=== PATIENT | female | born 1950 | race Caucasian/White ===

== ENCOUNTER 2016-10-06 11:44 | Inpatient (IN) | payer MEDICARE ==
[~2016-10-06] VITALS: Ht 162.6 cm; Wt 86.5 kg
[~2016-10-06 11:44] MED LIST: AMMO1SOL2 MC; ASCO-294 PO; ASPI-973 PO; CALC-762 PO; CHOL200047 PO; HYDR25TA4 PO; LISI-567 PO; METF-496 PO; METO50TA3 PO; NOVO7030I SUBQ; OMEP20CA11 PO
[2016-10-06 12:06] VITALS: BP 177/70; PULSE 63; RESP 18; O2SAT 98
[2016-10-06 12:52] LABS: BASOPHILS % (AUTO) 0.6 % (0-3); MONOCYTES % (AUTO) 8.4 % (4-12); Mean Corpuscular Hemoglobin 30.6 pg (27.0-35.0); Mean Corpuscular Volume 86.4 fL (81-100); NEUTROPHILS % (AUTO) 64.3 % (40-74); Platelet Count 200 bil/L (150-400)
[2016-10-06 13:19] LABS: APPEARANCE,URINE HAZY (CLEAR,HAZY); COLOR,URINE YELLOW (YELLOW); PH,URINE 5.5 (5.0-8.0)
[2016-10-06 13:20] LABS: OCCULT BLOOD,URINE TRACE (NEGATIVE); UROBILINOGEN,URINE NORMAL (NORMAL)
[2016-10-06] MEDS ORDERED: 0.9% Sodium Chloride 1,000 ML IV ONE (13:51)
[2016-10-06] MEDS ORDERED: Ondansetron 2 mg/mL 2 mL Inj IVPUSH ONE (13:55)
--- NOTE | 2016-10-06 13:55 | ED.REPORT ---
HPI-General Illness Date of Service Oct 06, 2016 ED Provider: Rossy Capone MD Patient is a 66-year-old female with a history of DM, high cholesterol, breast cancer, atherosclerotic disease, and HTN who reports to the ED complaining of extreme nausea, onset 6 days ago. She states she has been, "can't seem to feel better," and has been sleeping constantly. Patient has had a cough for a week which has increased in severity and also developed extreme fatigue, nausea, mid- back pain moving to the left flank, head ache, urinary urgency, weight loss and sore throat. She reports she began to feel like she was experiencing a bladder infection. Patient was seen at the Urgent Care 4 days ago where they negated the possibility of strep throat. She is currently on lisinopril. Nursing Notes Stated Complaint: NAUSEA/DIZZINESS/WEAKNESS Chief Complaint: General Complaint Nursing Notes Reviewed: Yes Allergies: Coded Allergies: latex (Verified Allergy, Severe, ITCH/RED WITH GLOVES, 07/10/09) clindamycin (Verified Allergy, Mild, Rash, 07/25/16) nitrofurantoin (Verified Allergy, Mild, Rash, 07/25/16) Scheduled Ammonium Lactate (Ammonium Lactate) 1 Ml Solution 1 ML MC DAILY Ascorbate Calcium (Vitamin C) 500 Mg Tablet 500 MG PO DAILY Aspirin (Aspirin) 81 Mg Tablet 81 MG PO DAILY Calcium Carbonate/Vitamin D3 (Calcium 1,000 + D3 Caplet) 1 Each Tablet 1 EACH PO DAILY Cholecalciferol (Vitamin D3) (Vitamin D3) 2,000 Unit Capsule 2,000 UNIT PO DAILY Hydrochlorothiazide (Hydrochlorothiazide) 25 Mg Tablet 25 MG PO DAILY Insulin Aspart (NovoLOG 70/30 U100 Insulin Vial) 100 Unit/Ml Vial 35 UNIT SUBQ BID Lisinopril (Lisinopril) 20 Mg Tablet 20 MG PO DAILY Metformin ER (Metformin ER) 1,000 Mg Tablet 1,000 MG PO BID HOLD TILL SATURDAY 07/28 Metoprolol Tartrate (Metoprolol Tartrate) 50 Mg Tablet 50 MG PO BID Omeprazole (Omeprazole) 20 Mg Capsule.dr 20 MG PO DAILY General Time Seen by MD: 13:49 Chief Complaint Other (nausea) Hx Obtained From: Patient Arrived By: Walk-in Sudden in Onset?: Yes (d) Onset Occurred: 1 week ago Symptom Duration: Since onset Location: : Back (mid-back pack moving to the left flank) Severity: Current: Mild Recent Healthcare: Recent doctor visit, Recent hospitalization Similar Sx Previous: Yes Past Medical History Past Medical History gastroporesis atherosclerotic disease breast cancer with radiation Reports: Diabetes mellitus, GERD, Hypertension Past Surgical History lumpectomy of left breast Reports: Tonsillectomy Smoking History Never Smoker Social History second hand smoke at the [employer] Alcohol Use: Denies alcohol use Drug Use: Denies drug use Ambulatory Status Independent Review of Systems Full Review of Systems Constitutional: Reports: Fatigue Ears / Nose / Throat: Reports: Sore throat Respiratory: Reports: Non-productive cough GI: Reports: Nausea Female: Reports: Flank pain, Urinary urgency Musculoskeletal: Reports: Back pain (mid-back pain moving to the left flank) Endocrine: Reports: Weight loss Complete sys rev & neg: except as marked. Physical Exam Vital Signs Vital Signs Date Time Temp Pulse Resp B/P Pulse Ox O2 Delivery O2 Flow Rate FiO2 10/06/16 14:16 36.8 78 14 107/50 93 Room Air 10/06/16 12:06 36.2 63 18 177/70 98 Room Air Initial VS: Reviewed General/Constitutional: Awake, Alert, Cooperative Distress / Hydration: Positive: Distress moderate Respiratory / Chest: No wheezing Rales / Rhonchi: Positive: Rhonchi diffuse Interpretation & Diagnostics Lab Results Interpretation Result Diagram: 10/06/16 1245 10/06/16 1245 Test 10/06/16 12:45 10/06/16 12:49 White Blood Count 6.8th/mm3 (3.8-10.1) Red Blood Count 4.28mil/mm3 (3.90-5.20) Hemoglobin 13.1g/dL (12.0-15.6) Hematocrit 37.0% (35.0-46.0) Mean Corpuscular Volume 86.4fL (81-100) Mean Corpuscular Hemoglobin 30.6pg (27.0-35.0) Mean Corpuscular Hemoglobin Concent 35.4% (32.0-37.0) Red Cell Distribution Width 12.2% (12.3-15.4) Platelet Count 200bil/L (150-400) Neutrophils (%) (Auto) 64.3% (40-74) Lymphocytes (%) (Auto) 25.6% (14-46) Monocytes (%) (Auto) 8.4% (4-12) Eosinophils (%) (Auto) 1.0% (0-5) Basophils (%) (Auto) 0.6% (0-3) Sodium Level 122mEq/L (134-144) Potassium Level 4.8mEq/L (3.5-5.2) Chloride Level 84mEq/L (97-108) Carbon Dioxide Level 20mmol/L (18-29) Blood Urea Nitrogen 17mg/dL (8-27) Creatinine 0.81mg/dL (0.57-1.00) Estimat Glomerular Filtration Rate 101mL/min (>59) Glucose Level 213mg/dL (60-99) Calcium Level 8.9mg/dL (8.5-10.1) Total Bilirubin 0.4mg/dL (0.0-1.2) Aspartate Amino Transf (AST/SGOT) 31U/L (0-50) Alanine Aminotransferase (ALT/SGPT) 27U/L (0-32) Alkaline Phosphatase 80U/L (25-165) Total Protein 7.4g/dL (6.4-8.4) Albumin 4.0g/dL (3.4-5.0) Hold Reynolds Top Tube Received (Received) Urine Color Yellow (YELLOW) Urine Appearance Hazy (CLEAR,HAZY) Urine pH 5.5 (5.0-8.0) Urine Specific [place] 1.020 (1.003-1.035) Urine Protein Tracemg/dL (NEG,TRACE) Urine Glucose (UA) Negativemg/dL (NEGATIVE) Urine Ketones Negativemg/dL (NEGATIVE) Urine Occult Blood Trace (NEGATIVE) Urine Nitrite Positive (NEGATIVE) Urine Bilirubin Negative (NEGATIVE) Urine Urobilinogen Normalmg/dL (NORMAL) Urine Leukocyte Esterase Trace (NEGATIVE) Urine RBC 0-2/hpf (0-2) Urine WBC 6-10/hpf (0-5) Urine Epithelial Cells Occasional/hpf (NONE-MOD) Urine Crystals None seen (NONE SEEN) Urine Bacteria Few/hpf (NONE-FEW) Urine Hyaline Casts None/lpf (NONE) Urine Granular Casts None seen (NONE SEEN) Urine Waxy Casts None seen (NONE SEEN) Urine Red Blood Cell Casts None seen (NONE SEEN) Urine White Blood Cell Casts None seen (NONE SEEN) Urine Mucus None seen (None Seen) Urine Trichomonas None seen (NONE SEEN) Urine Yeast None (NONE SEEN) Urinalysis Comment None Urine Culture Reflexed Indicated Lab Results Interpretation: IMPRESSION: 1. Newly apparent 1.5 x 1.4 x 1.4 cm medial left renal exophytic lesion is indeterminate for complex cyst or solid mass, and appears new since 2012 abdominal ultrasound. The level of the lesion is not included on recent chest CT angiogram for further evaluation. As such, consider renal protocol pre-and post contrast abdominal CT or MRI for further characterization. 2. Heterogeneous liver echotexture again noted, probably reflecting fatty infiltration. Dictated by: Rex Gates M.D. on 09/17/2016 at 10:41 Re-Eval/Medical Decision Med Decision/Clinical Course Presents with profound weakness and general malaise with a sodium of 122 124 when glucose is taken into account. Complaining of headaches and recent weight loss. Prior breast cancer. Possibility of metastatic lesions causing SIADH is entertained and CT scan of the brain will be obtained. Recently discovered complex cyst on her left kidney currently being treated for UTI with Cipro. CT scan of the abdomen to further evaluate the kidney lesion was scheduled for last week. She felt too sick to go in for that study and it is rescheduled for tomorrow. We will facilitate ordering that study today Normal saline is given in the emergency department along with Zofran. Admission for hyponatremia and global weakness. Time of Eval: 14:32 Re-Evaluation/Progress Note: Pt rechecked. Informed pt of need for admission. Discussed lab results and plan for imaging. Pt understands and agrees with plan for admission. All questions addressed. Consultation #1: Referral / Consult Name: Agnieszka Olsen MD, PhD Consulted With: Hospitalist Call Returned at: 14:45 Outreach Associate: Agrees with eval, Agrees with plan Note: Dr. Olsen recommended MRI rather then CT scan for brain. Discussed how to order abdominal CT. Consultation #2: Referral / Consult Name: Yessy Ferrari DO Consulted With: Hospitalist Call Returned at: 15:00 Outreach Associate: Agrees with eval, Agrees with plan Note: Case discussed. Counseled Regarding: Diagnosis, Lab results, Need for admission Discharge & Departure Primary Impression: Hyponatremia Additional Impressions: Weakness Renal mass Disposition: ADMITTED TO HOSPITAL Discharge Condition All VS Reviewed: Yes Condition: Stable Referrals: Clive Wang MD (PCP) Anand Attestation Portion of this note were transcribed by Phil Lopez. I, Dr. Capone, personally performed the history, physical exam, and medical decision-making: I reviewed and confirmed the accuracy for the information in the transcribed note. Signed by: anand Vivas, 10/06/16 1500 copies to: Clive Wang MD, Shawna L MD Oct 06, 2016 13:55 PHIL LOPEZ Oct 06, 2016 14:41
[2016-10-06 14:16] VITALS: BP 107/50; PULSE 78; RESP 14; O2SAT 93
[2016-10-06] MEDS ORDERED: Polyethylene Glycol (PEG) 17 Gm Powder PO PRN (15:45)
[2016-10-06] MEDS ORDERED: Ondansetron 2 mg/mL 2 mL Inj IVPUSH PRN (15:45)
[2016-10-06] MEDS ORDERED: Alum-Mag Hydrox-Simeth 30 mL Suspension PO PRN (15:45)
--- NOTE | 2016-10-06 15:48 | DRSVH ---
PROCEDURE: CT ABDOMEN RENAL PROTOCOL INDICATIONS: complex renal mass on Left kidney per u/s TECHNIQUE: Optional 5 mm thick noncontrast images acquired from the diaphragm to the iliac crests. After the ad ministration of intravenous contrast, 5 mm thick images again acquired from the diaphragm to the jimmie c crests in the arterial and urographic phases. 5 mm thick coronal and sagittal reformats were then acquired. For radiation dose reduction, the following was used: automated exposure control, adjustm ent of mA and/or kV according to patient size. COMPARISON: [facility] Ultrasound, US, US ABDOMEN, 09/17/2016, 8:09. FINDINGS: Image quality: Excellent. Lung bases: Lung bases are clear. Heart size is normal. Genitourinary: There is mild symmetrical perinephric fat stranding bilaterally. Kidneys are normal in size. Within the left interpolar kidney anteriorly, corresponding to the other malleus seen by ultra sound, there is a 16mm diameter partially exophytic high density focus which measures 37 Hounsfield u nits prior to intravenous contrast, and 44 Hounsfield units following intravenous contrast, which gr s not meet criteria for an enhancing mass. Immediately adjacent to this lesion, there is a smaller, 8 mm diameter high density focus within the left interpolar kidney medially. No renal enhancement is ot herwise within normal limits. No hydronephrosis. No nephrolithiasis. Proximal ureters are nondistende d. Other solid organs: Liver and spleen are normal in size and enhancement. Gallbladder is within norm al limits. Biliary system is non dilated. Pancreas enhances normally. Mild adrenal thickening is p resent bilaterally. No adrenal nodules. Peritoneum and bowel: Unenhanced bowel loops are normal in wall thickness and caliber. No free flui d or air. Nodes and vessels: No retroperitoneal or mesenteric adenopathy by size criteria. Aorta and inferior vena cava are normal in caliber. Bones: No suspicious bony lesions. No vertebral body compression fractures. Miscellaneous: No ventral hernias. IMPRESSION: 1. Findings which are most consistent with 2 adjacent hemorrhagic or proteinaceous fluid-containing c ysts within the left interpolar kidney. Followup renal protocol CT in 6 months is recommended to exclude the less likely possibility of neopl asm in this location. 2. Mild bilateral adrenal thickening. Dictated by: Keena Spencer M.D. on 10/06/2016 at 15:39 Approved by: Keena Spencer M.D. on 10/06/2016 at 15:46
[2016-10-06 15:53] VITALS: BP 144/63; PULSE 62; RESP 14; O2SAT 98
[2016-10-06] MEDS ORDERED: CIPR-198 PO (17:09)
[2016-10-06] MEDS ORDERED: CREST10T PO (17:09)
[2016-10-06] MEDS ORDERED: UBID300C PO (17:09)
[2016-10-06] MEDS ORDERED: METF500T PO (17:09)
[2016-10-06] MEDS ORDERED: AMMO385C5 TP (17:09)
[2016-10-06] MEDS ORDERED: PHEN-777 PO (17:09)
[2016-10-06] MEDS ORDERED: MULT-666 PO (17:09)
[2016-10-06] MEDS ORDERED: OXYQ113.2 VG (17:09)
[2016-10-06] MEDS ORDERED: INS7030 SUBQ (17:09)
[2016-10-06] MEDS ORDERED: NITR0.4T SL (17:09)
[2016-10-06 18:13] VITALS: BP 153/84; PULSE 67; RESP 20; O2SAT 96
--- NOTE | 2016-10-06 19:09 | NUR ---
Admit note- Received patient from Emergency dept. via stretcher. Alert and oriented and steady on feet. Denies discomfort at this time. Oriented to room, call light, etc.
[2016-10-06] MEDS ORDERED: Phenazopyridine 97.5 mg Tablet PO PRN (19:15)
--- NOTE | 2016-10-06 19:19 | PCM.HPMED ---
Subjective Date of Service Oct 06, 2016 Primary Provider: Admitting Physician: Yessy Ferrari DO Primary Care Physician: Clive Wang MD Attending Physician: Yessy Ferrari DO Chief Complaint: Fatigue and weakness History of Present Illness: 66 yo female presents with the c/o cough, sore throat, DUNLAP, facial edema, pelvic pressure, urinary irritation and fatigure for the last week and a half. Patient went to the urgent care twice and had a negative strep at the first visit and then went to a second urgent care and diagnosed with a UTI and dehydration and started on Cipro 500mg BID 2 days ago. The patient stated that she feels that she has not improved and feels that her symptoms are worsening and decided to come to the ER today. PMHx: DM HTN gastroparesis Breast cancer lumpectomy x2 followed by radiation in 2004 CAD IBS HLD Mass on kidney still being worked up. 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 Allergies Coded Allergies: latex (Verified Allergy, Severe, ITCH/RED WITH GLOVES, 10/06/16) clindamycin (Verified Allergy, Mild, Rash, 10/06/16) nitrofurantoin (Verified Allergy, Mild, Rash, 10/06/16) Home Medications Ammonia lactate 140 g daily Vitamin C 500 mg daily Aspirin 81 mg daily Vitamin D 3+ thousand milligrams of calcium daily vitamin D3 2000 mg daily Cipro 500 mg twice a day for 13 days this is day 3 Hydrochlorothiazide 25 mg daily Regular insulin 35 units subcutaneous twice a day Lisinopril 20 mg daily Metformin thousand milligrams twice a day Metoprolol 50 twice a day Multivitamin 1 daily Nitrostat 0.4 mg subcutaneous when necessary chest pain Omeprazole 20 mg daily Oxyquinoline/Sod.lauryl sulfat 113.4 . Phenazopyridine 200 mg tabs 3 times a day when necessary pain Crestor 10 mg daily at bedtime CoQ10 300 mg daily PMH Social History Hx Alcohol Use: No Hx Substance Use: No Hx Tobacco Use: No Smoking Status: Never Smoker Exam Vital Signs Vital Sign - Last Date Time Temp Pulse Resp B/P Pulse Ox O2 Delivery O2 Flow Rate FiO2 10/06/16 18:13 36.7 67 20 153/84 96 Room Air Exam Physical Exam: GEN: Patient was awake, alert, responding appropriately to questions HEENT: PERRLA, EOMI, Neck soft supple, trachea midline, nomocephalic/atraumatic CV: +S1/S2, RRR, no murmurs auscultated Respiratory: Positive wheezes, no rales or rhonchi GI: +bowel sounds x4, soft, compressible, non TTP EXT: no c/c/e Neuro: CN II-XII grossly intact Psych: mood and affect were appropriate Lab and Diagnostics Result Diagram: 10/06/16 1245 10/06/16 1701 X-Rays, CTs and MRIs PROCEDURE: CT ABDOMEN RENAL PROTOCOL INDICATIONS: complex renal mass on Left kidney per u/s TECHNIQUE: Optional 5 mm thick noncontrast images acquired from the diaphragm to the iliac crests. After the administration of intravenous contrast, 5 mm thick images again acquired from the diaphragm to the iliac crests in the arterial and urographic phases. 5 mm thick coronal and sagittal reformats were then acquired. For radiation dose reduction, the following was used: automated exposure control, adjustment of mA and/or kV according to patient size. COMPARISON: [facility] Ultrasound, US, US ABDOMEN, 09/17/2016, 8: 09. FINDINGS: Image quality: Excellent. Lung bases: Lung bases are clear. Heart size is normal. Genitourinary: There is mild symmetrical perinephric fat stranding bilaterally. Kidneys are normal in size. Within the left interpolar kidney anteriorly, corresponding to the other malleus seen by ultrasound, there is a 16mm diameter partially exophytic high density focus which measures 37 Hounsfield units prior to intravenous contrast, and 44 Hounsfield units following intravenous contrast , which does not meet criteria for an enhancing mass. Immediately adjacent to this lesion, there is a smaller, 8mm diameter high density focus within the left interpolar kidney medially. No renal enhancement is otherwise within normal limits. No hydronephrosis. No nephrolithiasis. Proximal ureters are nondistended. Other solid organs: Liver and spleen are normal in size and enhancement. Gallbladder is within normal limits. Biliary system is non dilated. Pancreas enhances normally. Mild adrenal thickening is present bilaterally. No adrenal nodules. Peritoneum and bowel: Unenhanced bowel loops are normal in wall thickness and caliber. No free fluid or air. Nodes and vessels: No retroperitoneal or mesenteric adenopathy by size criteria. Aorta and inferior vena cava are normal in caliber. Bones: No suspicious bony lesions. No vertebral body compression fractures. Miscellaneous: No ventral hernias. IMPRESSION: 1. Findings which are most consistent with 2 adjacent hemorrhagic or proteinaceous fluid-containing cysts within the left interpolar kidney. Followup renal protocol CT in 6 months is recommended to exclude the less likely possibility of neoplasm in this location. 2. Mild bilateral adrenal thickening. Assessment & Plan 66-year-old female presents with multiple URI and abdominal complaints with a history of breast cancer. Hyponatremia may be secondary to increased water intake --IV fluids running at 150 cc an hour -- Sodium on admission 122 improve with IV fluids at 126 -- We will continue to monitor and follow up in the morning Abdominal pain may be secondary to chronic gastroparesis or previously known mass on kidney -- Patient had an abdominal CT scan showing positive cysts in the kidney -- Protonix 40 daily -- We will continue to monitor UTI -- UA positive for bacteria -- Follow-up culture and sensitivity -- Started on Rocephin daily 1 g History of breast cancer -- Currently stable -- We will perform MRI of the brain as some of the patient's symptoms are suspicious for possible metastasis of cancer Diabetes mellitus -- Accu-Cheks before meals at bedtime -- Continue metformin thousand milligrams twice a day -- Continue insulin 35 units twice a day Hypertension -- Blood pressure currently 153/84 -- Continue metoprolol 50 twice a day --Continue lisinopril 20 mg daily -- Continue hydrochlorothiazide 25 mg daily CAD -- Continue aspirin daily -- Nitrostat when necessary -- We will continue to monitor IBS -- Currently stable we will continue to monitor Hyperlipidemia -- Continue Crestor 10 mg daily Disposition: Patient suspected to cross 2 midnights will continue to monitor and treat. Yessy Ferrari DO Oct 06, 2016 18:39
[2016-10-06] MEDS: 0.9% Sodium Chloride 1,000 ML IV SCH ×2 (20:00→22:25)
[2016-10-06] MEDS ORDERED: LORazepam 1 mg Tablet ONE (20:38)
[2016-10-06] MEDS ORDERED: LORazepam 1 mg Tablet PO ONE ×2 (20:45→20:50)
[2016-10-06 22:15] VITALS: BP 148/75; PULSE 71
[2016-10-06] MEDS: Insulin Human NPH-Reg 70-30 100 Unit/mL 3 mL Pen SUBQ SCH (23:34)
[2016-10-07 02:34] VITALS: BP 122/72; PULSE 63; RESP 20; O2SAT 97
[2016-10-07] MEDS ORDERED: Glucose 40% Oral Gel 15 Gm Tube PO PRN (03:25)
--- NOTE | 2016-10-07 04:18 | NUR ---
BG pt was given her regular dose of Humulin 70/30 and metformin HS her BG was 221 and she ate half of a egg salad sandwich at bedtime as she says her BG has a tendency to drop at night. around 0230 pt started complaining of feeling sweaty and shaky and asked nurse to check her BG it was 82. pt states she feels poorly when ever it goes below 100. she was given two pieces of toast with peanut butter. patient ate almost all of the toast but on reassment blood glucose was 71. at that time pt was given a cup of apple juice and finished her toast but still blood glucose went down to 69. MD notified at this time who ordered D5 IV push protocol and oral glucose. pt still able to take PO so she was given 15gm of oral gel glucose and blood sugar went up to 72. she was then given a vanilla pudding and BG went up to 77. pt no longer feels shaky will continue to monitor until BG above 100. Addendum: 10/07/16 at 0550 by RIOS MEDEROS RN pt bg has gone up. she has had >100 checks x2. currently she is 112. will continue to monitor for signs fo hypoglycemia, BG will be checked again before breakfast
[2016-10-07] MEDS: 0.9% Sodium Chloride 1,000 ML IV SCH ×3 (05:05→23:27)
[2016-10-07 05:42] LABS: Mean Corpuscular Hemoglobin 30.6 pg (27.0-35.0); Mean Corpuscular Volume 88.8 fL (81-100)
[2016-10-07 06:05] VITALS: BP 111/60; PULSE 67; RESP 20; O2SAT 97
[2016-10-07] MEDS ORDERED: Magnesium Sulf 2 Gm/50mL Water 2 GM in IV Premix 1 EACH IV ONE (07:25)
[2016-10-07] MEDS: Insulin LISPRO 300 Unit/3 mL Inj SUBQ SCH ×4 (07:56→22:00)
[2016-10-07] MEDS: Insulin Human NPH-Reg 70-30 100 Unit/mL 3 mL Pen SUBQ SCH ×2 (07:56→20:30)
[2016-10-07 08:18] VITALS: BP 132/54; PULSE 65
[2016-10-07] MEDS: Pantoprazole 40 mg ER24 Tablet PO SCH (08:21)
[2016-10-07] MEDS: [UNRECOGNIZED DRUG - OTHER] TOPICAL SCH (08:21)
--- NOTE | 2016-10-07 08:35 | DRSVH ---
PROCEDURE: MRI BRAIN WITH AND WITHOUT CONTRAST ([id number]) INDICATIONS: Recent headache and past history of breast cancer TECHNIQUE: Noncontrast axial T1 spin echo, axial T2 fast spin echo, sagittal and axial FLAIR, coronal T2 fast sp in echo, axial gradient echo, axial diffusion and ADC through the brain. After the administration of contrast, axial and coronal 3D VIBE or T1 spin echo with fat saturation through the brain. COMPARISON: None. FINDINGS: Image quality: Excellent. CSF Spaces: Basal cisterns are patent. No extra-axial fluid collections. Ventricles are normal in size and shape. Brain: No midline shift. No intracranial bleeds or masses. No abnormal intracranial enhancement. The brainstem appears normal. Diffusion-weighted images demonstrate no acute ischemic insults. Old, small, lacunar infarct is noted in the left aspect of the jenniffer. A few, scattered, punctate foci of in creased T2 signal noted in the periventricular and subcortical white matter tracts compatible with mi ld chronic microvascular ischemic changes. Normal intravascular flow voids are present. Skull and face: Calvarial marrow is normal in signal. Orbits appear normal. Sinuses: Mild mucosal thickening noted in the maxillary sinuses, the ethmoid air cells, the sphenoid sinuses and the frontal sinuses bilaterally. 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 The ma stoids appear clear. IMPRESSION: 1. No acute intracranial disease process. 2. No evidence of metastatic disease. 3. Mild, diffuse volume loss. 4. Mild periventricular and subcortical white matter chronic microvascular ischemic changes. 5. Old, small, left pontine lacunar infarct. 6. Fishman-sinus mucosal thickening. Please correlate with clinical data. Dictated by: Agnieszka Olsen MD, PhD on 10/07/2016 at 8:22 Approved by: Agnieszka Olsen MD, PhD on 10/07/2016 at 8:34
[2016-10-07 10:29] VITALS: BP 145/78; PULSE 67; RESP 19; O2SAT 97
[2016-10-07] MEDS: cefTRIAXone Inj 2,000 MG in Dextrose 5% Minibag Plus 50 ML IV SCH (10:42)
--- NOTE | 2016-10-07 14:28 | NUR ---
Social Work Initial Assessment: SW met with patient at bedside to discuss discharge plan. Patient verified name, address, and contact information. Patient is a 66 year old female admitted on 10/06/16 for hyponatremia, global weakness. Patient states residing in [facility] with Gerard,[phone]. Patient payer as [employer]. Patient PCP as MD Wang. [facility]. Patient has no HHC, SNF, or DME history. Patient sates having no AD and declined completion. Patient states being independent with needs and family also available to provide support and care. SW to follow. PLAN: Home with via POV, pending clinical course. SW to follow. Kaya POLK Addendum: 10/07/16 at 1431 by GRAZYNA HARDY Amended: Links added.
[2016-10-07 15:20] VITALS: BP 144/79; PULSE 64; RESP 16; O2SAT 98
--- NOTE | 2016-10-07 16:09 | PCM.PNMED ---
Subjective Date of Service Oct 07, 2016 Subjective Patient was examined at bedside today. Patient denies any chest pain, shortness of breath, nausea, vomiting, diarrhea. Patient states that she is feeling improved compared to yesterday. Exam Vital Signs Vital Sign - Last Date Time Temp Pulse Resp B/P Pulse Ox O2 Delivery O2 Flow Rate FiO2 10/07/16 15:20 36.3 64 16 144/79 98 Room Air Intake and Output 10/06/16 10/06/16 10/07/16 Cumulative From/Thru 15:00 23:00 07:00 10/06/16 12:06 - 10/07/16 06:25 Intake Total 0 ml 850 ml 850 ml Output Total 0 ml 750 ml 750 ml Balance 0 ml 100 ml 100 ml Intake Oral 0 ml 850 ml 850 ml Output Urine Total 0 ml 750 ml 750 ml Exam Physical Exam: GEN: Patient was awake, alert, responding appropriately to questions HEENT: PERRLA, EOMI, Neck soft supple, trachea midline, nomocephalic/atraumatic , maxillary sinuses tender to palpation CV: +S1/S2, RRR, no murmurs auscultated Respiratory: CTAB, no wheezes, rales, rhonchi GI: +bowel sounds x4, soft, compressible, non TTP EXT: no c/c/e Neuro: CN II-XII grossly intact Psych: mood and affect were appropriate IVs and Medications Medications Reviewed: Medications were reviewed in detail Medications Current Medications Al Hydrox/Mg Hydrox/Simethicone 30 ml Q6H PRN PO; Start 10/06/16 at 15:45 Ondansetron HCl 4 to 8 mg Q4H PRN IVPUSH; Start 10/06/16 at 15:45 Senna 17.2 mg BID PRN PO; Start 10/06/16 at 15:45 Polyethylene Glycol 17 gm 17 gm DAILY PRN PO; Start 10/06/16 at 15:45 Sodium Chloride 1,000 ml @ 100 mls/hr Q10H IV Last administered on 10/06/16 20 :00; Admin Dose 150 MLS/HR; Start 10/06/16 at 15:45 Aspirin 81 mg DAILY PO Last administered on 10/07/16 08:21; Admin Dose 81 MG; Start 10/07/16 at 08:30 Hydrochlorothiazide 25 mg DAILY PO Last administered on 10/07/16 08:22; Admin Dose 25 MG; Start 10/07/16 at 08:30 Insulin Human Isoph/Insulin Regular 35 unit BID SUBQ Last administered on 23:34; Admin Dose 35 UNIT; Start 10/06/16 at 20:30 Lisinopril 20 mg DAILY PO Last administered on 10/07/16 08:21; Admin Dose 20 MG ; Start 10/07/16 at 08:30 Metformin HCl 1,000 mg BID PO Last administered on 10/07/16 08:21; Admin Dose 1 ,000 MG; Start 10/06/16 at 20:30 Metoprolol Tartrate 50 mg BID PO Last administered on 10/07/16 08:21; Admin Dose 50 MG; Start 10/06/16 at 20:30 Nitroglycerin 0.4 mg Q5MIN PRN SL; Start 10/06/16 at 18:55 Rosuvastatin Calcium 10 mg DAILY PO; Start 10/07/16 at 08:30; Stop 10/07/16 at 08:30; Status DC Pantoprazole 40 mg 0630 PO Last administered on 10/07/16 08:21; Admin Dose 40 MG; Start 10/07/16 at 06:30 Patient Own Medication 1 applic TuSa TOPICAL; Start 10/07/16 at 08:30 Phenazopyridine HCl 2 tab TID PRN PO Last administered on 10/07/16 11:58; Admin Dose 2 TAB; Start 10/06/16 at 19:15 Rosuvastatin Calcium 10 mg 10 mg HS PO Last administered on 10/06/16 22:15; Admin Dose 10 MG; Start 10/06/16 at 21:00 Ceftriaxone Sodium/Dextrose/ Water 50 ml @ 100 mls/hr Q24 IV Last administered on 10/07/16 10:42; Admin Dose 100 MLS/HR; Start 10/07/16 at 08:30 Acetaminophen 650 mg Q6H PRN PO Last administered on 10/07/16 00:26; Admin Dose 650 MG; Start 10/06/16 at 23:05 Insulin Human Lispro Nutritional Dose to be given pr... [facility] SUBQ; Start at 08:00 Lab and Diagnostics Result Diagram: 10/07/165 10/07/16 0415 X-Rays, CTs and MRIs PROCEDURE: CT ABDOMEN RENAL PROTOCOL INDICATIONS: complex renal mass on Left kidney per u/s TECHNIQUE: Optional 5 mm thick noncontrast images acquired from the diaphragm to the iliac crests. After the administration of intravenous contrast, 5 mm thick images again acquired from the diaphragm to the iliac crests in the arterial and urographic phases. 5 mm thick coronal and sagittal reformats were then acquired. For radiation dose reduction, the following was used: automated exposure control, adjustment of mA and/or kV according to patient size. COMPARISON: [facility] Ultrasound, US, US ABDOMEN, 09/17/2016, 8: 09. FINDINGS: Image quality: Excellent. Lung bases: Lung bases are clear. Heart size is normal. Genitourinary: There is mild symmetrical perinephric fat stranding bilaterally. Kidneys are normal in size. Within the left interpolar kidney anteriorly, corresponding to the other malleus seen by ultrasound, there is a 16mm diameter partially exophytic high density focus which measures 37 Hounsfield units prior to intravenous contrast, and 44 Hounsfield units following intravenous contrast , which does not meet criteria for an enhancing mass. Immediately adjacent to this lesion, there is a smaller, 8mm diameter high density focus within the left interpolar kidney medially. No renal enhancement is otherwise within normal limits. No hydronephrosis. No nephrolithiasis. Proximal ureters are nondistended. Other solid organs: Liver and spleen are normal in size and enhancement. Gallbladder is within normal limits. Biliary system is non dilated. Pancreas enhances normally. Mild adrenal thickening is present bilaterally. No adrenal nodules. Peritoneum and bowel: Unenhanced bowel loops are normal in wall thickness and caliber. No free fluid or air. Nodes and vessels: No retroperitoneal or mesenteric adenopathy by size criteria. Aorta and inferior vena cava are normal in caliber. Bones: No suspicious bony lesions. No vertebral body compression fractures. Miscellaneous: No ventral hernias. IMPRESSION: 1. Findings which are most consistent with 2 adjacent hemorrhagic or proteinaceous fluid-containing cysts within the left interpolar kidney. Followup renal protocol CT in 6 months is recommended to exclude the less likely possibility of neoplasm in this location. 2. Mild bilateral adrenal thickening. Assessment & Plan 66-year-old female presents with multiple URI and abdominal complaints with a history of breast cancer. Hyponatremia may be secondary to increased water intake (resolved) -- Discontinue IV fluids -- Sodium on admission 122 improve with IV fluids at 126 today 134 within normal limits -- We will continue to monitor and follow up in the morning Abdominal pain may be secondary to chronic gastroparesis or previously known mass on kidney -- Patient had an abdominal CT scan showing positive cysts in the kidney -- Protonix 40 daily -- We will continue to monitor UTI -- UA positive for bacteria -- Follow-up culture and sensitivity -- Started on Rocephin daily 1 g History of breast cancer -- Currently stable -- We will perform MRI of the brain as some of the patient's symptoms are suspicious for possible metastasis of cancer: MRI shows evidence of sinusitis but no evidence of metastases to the brain, continue to treat with Rocephin Diabetes mellitus -- Accu-Cheks before meals at bedtime -- Continue metformin thousand milligrams twice a day -- Continue insulin 35 units twice a day Hypertension -- Blood pressure currently 144/79 -- Continue metoprolol 50 twice a day --Continue lisinopril 20 mg daily -- Continue hydrochlorothiazide 25 mg daily CAD -- Continue aspirin daily -- Nitrostat when necessary -- We will continue to monitor IBS -- Currently stable we will continue to monitor Hyperlipidemia -- Continue Crestor 10 mg daily Disposition: Patient currently responding well to treatment. Patient's symptoms are most likely secondary to urinary tract infection and sinusitis. Patient should go home on outpatient antibiotics treatment for sinusitis Augmentin 875 one by mouth twice a day for 5 days. Patient did have a CT scan of the abdomen showing cysts in the kidneys which should be followed up in 6 months with a renal CT scan. Patient should follow-up with her primary care physician in regards to this as well. Patient is currently stable and will most likely discharge home tomorrow. VTE Mechanical Devices: Intermittant Pneumatic CD Yessy Ferrari DO Oct 07, 2016 16:00
--- NOTE | 2016-10-07 19:26 | NUR ---
Humulin Humulin 70/30 held this AM. Blood sugar 124 and 116. Blood sugar this PM was 157. Patient refused 1 unit sliding scale. Will continue to monitor blood sugar. Call light and tray table within reach.
[2016-10-07 20:35] VITALS: BP 129/67; PULSE 60; RESP 20; O2SAT 98
--- NOTE | 2016-10-08 03:09 | NUR ---
blood sugar/itching pt BG was 180 at HS. she did not want to take her Humulin 70/30 for fear of a repeat of last night and that she would become hypoglycemic again. she did take 1000mg of metformin with food. she also requested a snack be by her bed in case she woke up hypoglycemic, she was given crackers and peanut butter to have at bedside. her 3AM BG check was 145. pt also complained of itchiness on her stomach and forehead at HS no rash or redness noted. pt changed her gown and washed her skin thinking something on her might have irritated her. she denied any SOB or difficulty with swallowing, no swelling around face noted. she was asked if she wanted nurse to contact the MD for Benadryl but she said it was only a mild itch and did not want any medicine for it. she has been checked multiple times throughout the night and has shown no signs of swelling, rash, or respiratory distress. care continues.
[2016-10-08 04:55] VITALS: BP 122/71; PULSE 57; RESP 18; O2SAT 93
[2016-10-08 05:31] LABS: Mean Corpuscular Hemoglobin 30.6 pg (27.0-35.0); Mean Corpuscular Volume 88.9 fL (81-100)
[2016-10-08] MEDS: Insulin LISPRO 300 Unit/3 mL Inj SUBQ SCH ×4 (08:00→22:00)
[2016-10-08] MEDS: cefTRIAXone Inj 2,000 MG in Dextrose 5% Minibag Plus 50 ML IV SCH (08:48)
[2016-10-08] MEDS: Pantoprazole 40 mg ER24 Tablet PO SCH (08:48)
[2016-10-08] MEDS: Insulin Human NPH-Reg 70-30 100 Unit/mL 3 mL Pen SUBQ SCH ×2 (08:50→20:30)
--- NOTE | 2016-10-08 10:39 | NUR ---
Nausea Patient reported feeling nauseated. 4 mg of ondansetron given. Denies pain at this time. Patient repositions self for comfort. Call light and tray table within reach. Will continue to monitor patient hourly.
[2016-10-08 10:57] VITALS: BP 134/67; PULSE 57; RESP 18; O2SAT 97
[2016-10-08 13:14] VITALS: BP 158/73; PULSE 59; RESP 17; O2SAT 99
[2016-10-08 16:52] VITALS: BP 169/80; PULSE 63; RESP 16; O2SAT 98
[2016-10-08] MEDS: diphenhydrAMINE 25 mg Capsule PO PRN (18:44)
--- NOTE | 2016-10-08 18:44 | NUR ---
Itching Patient reported itching intermittent throughout this shift. MD notified. 25 mg of Benadryl given. Denies pain. Will continue to monitor patient hourly.
[2016-10-08 20:19] VITALS: BP 145/59; PULSE 65; RESP 18; O2SAT 98
--- NOTE | 2016-10-08 21:30 | PCM.PNMED ---
Subjective Date of Service Oct 08, 2016 Subjective Patient states she is not feeling better. She complains of a pruritus on her anterior abdomen only that comes and goes. This pruritus started after she arrived here. She has no pruritus anywhere else on her body. She has no rash anywhere on her body. She also complains of diarrhea which she had a week before starting her Cipro antibiotic. She states that she has a history of irritable bowel syndrome and often has diarrhea. She has no further flank pain she has no fever or chills diaphoresis. She is less lethargic. Exam Vital Signs Vital Sign - Last Date Time Temp Pulse Resp B/P Pulse Ox O2 Delivery O2 Flow Rate FiO2 10/08/16 20:19 36.7 65 18 145/59 98 Room Air Intake and Output 10/07/16 10/07/16 10/08/16 Cumulative From/Thru 15:00 23:00 07:00 10/06/16 12:06 - 10/07/16 19:36 Intake Total 1549 ml 1500 ml 3899 ml Output Total 750 ml Balance 1549 ml 1500 ml 3149 ml Intake Oral 1500 ml 2350 ml IV Total 1549 ml 1549 ml Output Urine Total 750 ml # Voids 2 2 Exam General: Patient is in no apparent distress. However, periodically during my visit she would grab her abdomen and began scratching it. HEENT: Head is atraumatic normocephalic. Eyes: Pupils are equally round and reactive to light and accommodation. Extraocular muscles are intact. Sclera are white anicteric. Subconjunctival mucosa is pink. Ears and nose are unremarkable. Oropharynx: There is no mucosal lesions, there is no thrush, there is no pharyngitis. Neck: Is supple, there are no nodes, or masses or tenderness. Chest: Is clear to auscultation and percussion. There are no rales, rhonchi, wheezes or rubs. Heart: Rate, rhythm is regular. There is no new murmur, rub or gallop. Abdomen: Good bowel sounds are present. Abdomen is soft, nontender, no organomegaly or masses were appreciated. Extremities: Are symmetrical and well perfused. There is no edema, there is no cellulitis, no rash. Neurologic: There are no focal neurological deficits. Cranial nerves II through XII are intact. There are no sensory or motor deficits. Psychiatric: Patients mood is calm and shows no sign of agitation. Genital: Deferred Rectal: Deferred Lab and Diagnostics Result Diagram: 10/08/1644910/08/16449 Microbiology Name: SERENE COTTO Age/Sex: 66/F Attend Dr: Yessy Ferrari DO Acct: [id number] Unit: [id number] Status: ADM IN Location: [facility] [place] 1019-1 Re10/06/16 Disch: Specimen: [id number] Collected: 10/06/16 Status: RES Req#: [id number] Received: 10/06/16 Source: URINE CC Sp Desc : JANET Mancera Dr: ROSARIO MCDONNELL MD Ordered: URINE CULT Procedure Result Verified Site Microbiology [facility] CULT URINE Preliminary 10/08/16-706 PRELIMINARY ID GRAM NEGATIVE ARBEN ID AND SENS TO FOLLOW COLONY COUNT/QUANTITY 10-25,000 CFU/ml X-Rays, CTs and MRIs PROCEDURE: CT ABDOMEN RENAL PROTOCOL INDICATIONS: complex renal mass on Left kidney per u/s TECHNIQUE: Optional 5 mm thick noncontrast images acquired from the diaphragm to the iliac crests. After the administration of intravenous contrast, 5 mm thick images again acquired from the diaphragm to the iliac crests in the arterial and urographic phases. 5 mm thick coronal and sagittal reformats were then acquired. For radiation dose reduction, the following was used: automated exposure control, adjustment of mA and/or kV according to patient size. COMPARISON: [facility] Ultrasound, US, US ABDOMEN, 09/17/2016, 8: 09. FINDINGS: Image quality: Excellent. Lung bases: Lung bases are clear. Heart size is normal. Genitourinary: There is mild symmetrical perinephric fat stranding bilaterally. Kidneys are normal in size. Within the left interpolar kidney anteriorly, corresponding to the other malleus seen by ultrasound, there is a 16mm diameter partially exophytic high density focus which measures 37 Hounsfield units prior to intravenous contrast, and 44 Hounsfield units following intravenous contrast , which does not meet criteria for an enhancing mass. Immediately adjacent to this lesion, there is a smaller, 8mm diameter high density focus within the left interpolar kidney medially. No renal enhancement is otherwise within normal limits. No hydronephrosis. No nephrolithiasis. Proximal ureters are nondistended. Other solid organs: Liver and spleen are normal in size and enhancement. Gallbladder is within normal limits. Biliary system is non dilated. Pancreas enhances normally. Mild adrenal thickening is present bilaterally. No adrenal nodules. Peritoneum and bowel: Unenhanced bowel loops are normal in wall thickness and caliber. No free fluid or air. Nodes and vessels: No retroperitoneal or mesenteric adenopathy by size criteria. Aorta and inferior vena cava are normal in caliber. Bones: No suspicious bony lesions. No vertebral body compression fractures. Miscellaneous: No ventral hernias. IMPRESSION: 1. Findings which are most consistent with 2 adjacent hemorrhagic or proteinaceous fluid-containing cysts within the left interpolar kidney. Followup renal protocol CT in 6 months is recommended to exclude the less likely possibility of neoplasm in this location. 2. Mild bilateral adrenal thickening. Assessment & Plan 66-year-old female presents with multiple URI and abdominal complaints with a history of breast cancer. Hyponatremia may be secondary to increased water intake (resolved) -- IV fluids have been discontinued -- Sodium on admission was 122 and since has improved to normal -- We will continue to monitor. Abdominal pain improved may have been secondary to chronic gastroparesis or peptic ulcer disease, or upper pole urinary tract infection -- Patient had an abdominal CT scan showing positive cysts in the kidney. Repeat CT scan is recommended in 6 months. -- Protonix 40 daily to continue -- We will continue to monitor UTI -- UA positive for bacteria -- Follow-up culture and sensitivity pending -- Started on Rocephin daily 1 g, will continue for now. However, if rash develops, or itching worsens, will discontinue. History of breast cancer -- Currently stable -- We have performed MRI of the brain, as some of the patient's symptoms are suspicious for possible metastasis of cancer: MRI shows evidence of sinusitis but no evidence of metastases to the brain, continue to treat with Rocephin Diabetes mellitus -- Accu-Cheks before meals at bedtime -- Continue metformin thousand milligrams twice a day -- Continue insulin 35 units twice a day Hypertension -- Blood pressure currently 144/79 -- Continue metoprolol 50 twice a day --Continue lisinopril 20 mg daily -- Continue hydrochlorothiazide 25 mg daily CAD -- Continue aspirin daily -- Nitrostat when necessary -- We will continue to monitor IBS -- Patient currently has diarrhea. Will check stool for infectious pathogens to ensure that patient's diarrhea is from IBS and not an infection. Hyperlipidemia -- Continue Crestor 10 mg daily Pruritus -- Is located in the anterior abdominal wall only and there is no associated rash -- This could be due to drug reaction -- Other etiology possible -- We will add Benadryl and continue to monitor. Disposition: Patient has multiple complaints and is not feeling well today. Pruritus is of concern, as patient may be having a drug reaction. Patient did have a CT scan of the abdomen showing cysts in the kidneys which should be followed up in 6 months with a [address] scan. Patient should follow-up with her primary care physician in regards to this as well. Pain Evaluation: Adequate Pain Control GI Prophylaxis: Proton Pump Inhibitor VTE Prophylaxis: Other (Patient is ambulating frequently.) VTE Mechanical Devices: Intermittant Pneumatic CD Resuscitation Status: CPR: Attempt Resuscitation BaldoLong MD Oct 08, 2016 21:30
--- NOTE | 2016-10-09 01:12 | NUR ---
blood sugar pt declined taking her 70/30 humulin. BG was at 149 at bedtime. she did take her metformin. she was also given snacks to keep at bedside to in case she woke up hypoglycemic. BG will be checked again at 0300. also pt denies any itching at this time. says benadryl was effective. care continues. Addendum: 10/09/16 at 0423 by RIOS MEDEROS RN pt's 0300 am BG was 145. no episodes of hypoglycemia this shift. also no further reports of itching or diarrhea.
[2016-10-09 05:25] VITALS: BP 128/67; PULSE 57; RESP 18; O2SAT 95
[2016-10-09] MEDS: Pantoprazole 40 mg ER24 Tablet PO SCH (06:17)
[2016-10-09] MEDS: diphenhydrAMINE 25 mg Capsule PO PRN ×2 (06:17→11:54)
[2016-10-09 07:16] LABS: BASOPHILS % (AUTO) 0.3 % (0-3); EOSINOPHILS % (AUTO) 2.6 % (0-5); MONOCYTES % (AUTO) 8.9 % (4-12); Mean Corpuscular Hemoglobin 30.6 pg (27.0-35.0); Mean Corpuscular Volume 90.1 fL (81-100); NEUTROPHILS % (AUTO) 55.1 % (40-74); Platelet Count 236 bil/L (150-400)
[2016-10-09 07:40] VITALS: BP 137/74; PULSE 60; RESP 16; O2SAT 98
[2016-10-09] MEDS: Insulin LISPRO 300 Unit/3 mL Inj SUBQ SCH ×4 (07:47→22:00)
[2016-10-09 07:49] LABS: Magnesium 1.3 mg/dL (1.6-2.6)
[2016-10-09] MEDS: cefTRIAXone Inj 2,000 MG in Dextrose 5% Minibag Plus 50 ML IV SCH (07:51)
[2016-10-09] MEDS: Insulin Human NPH-Reg 70-30 100 Unit/mL 3 mL Pen SUBQ SCH ×2 (08:30→20:56)
[2016-10-09] MEDS ORDERED: Magnesium Sulf 2 Gm/50mL Water 2 GM in IV Premix 1 EACH IV ONE (08:35)
[2016-10-09] MEDS ORDERED: Magnesium Sulf 4 Gm/100 mL H2O 4 GM in IV Premix 1 EACH IV ONE (08:35)
[2016-10-09] MEDS: 0.9% Sodium Chloride 1,000 ML IV SCH ×2 (12:35→18:47)
[2016-10-09 13:05] VITALS: BP 148/78; PULSE 55; RESP 20; O2SAT 98
[2016-10-09 18:02] VITALS: BP 166/74; PULSE 65; RESP 16
--- NOTE | 2016-10-09 18:42 | NUR ---
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 Labs indicated a 1.3 Mg level, and the pt was given 6mg of IV Mg over the course of 6 hours. Hopeful DC home tomorrow
[2016-10-09 20:33] VITALS: BP 178/83; PULSE 71; RESP 20; O2SAT 98
--- NOTE | 2016-10-09 22:54 | PCM.PNMED ---
Subjective Date of Service Oct 09, 2016 Subjective For the first time patient is beginning to feel a little bit better today. She still has pruritus on her abdomen, however there is no rash. The pruritus is helped by the Benadryl. Overall she is finally starting to feel a little bit better. Exam Vital Signs Vital Sign - Last Date Time Temp Pulse Resp B/P Pulse Ox O2 Delivery O2 Flow Rate FiO2 10/09/16 20:33 36.5 71 20 178/83 98 Room Air Intake and Output 10/08/16 10/08/16 10/09/16 Cumulative From/Thru 15:00 23:00 07:00 10/06/16 12:06 - 10/09/16 06:26 Intake Total 489 ml 1000 ml 600 ml 5988 ml Output Total 750 ml Balance 489 ml 1000 ml 600 ml 5238 ml Intake Oral 400 ml 1000 ml 600 ml 4350 ml IV Total 89 ml 1638 ml Output Urine Total 750 ml # Voids 2 3 2 9 # Bowel Movements 0 3 0 3 Exam General: Patient is in no apparent distress. She is much more comfortable today. HEENT: Head is atraumatic normocephalic. Eyes: Pupils are equally round and reactive to light and accommodation. Extraocular muscles are intact. Sclera are white anicteric. Subconjunctival mucosa is pink. Ears and nose are unremarkable. Oropharynx: There is no mucosal lesions, there is no thrush, there is no pharyngitis. Neck: Is supple, there are no nodes, or masses or tenderness. Chest: Is clear to auscultation and percussion. There are no rales, rhonchi, wheezes or rubs. Heart: Rate, rhythm is regular. There is no new murmur, rub or gallop. Abdomen: Good bowel sounds are present. Abdomen is soft, nontender, no organomegaly or masses were appreciated. There is no CVA tenderness. Extremities: Are symmetrical and well perfused. There is no edema, there is no cellulitis, no rash. Neurologic: There are no focal neurological deficits. Cranial nerves II through XII are intact. There are no sensory or motor deficits. Psychiatric: Patients mood is calm and shows no sign of agitation. Genital: Deferred Rectal: Deferred Lab and Diagnostics Result Diagram: 10/09/16 0701 10/09/16 0701 Microbiology Name: SERENE COTTO Age/Sex: 66/F Attend Dr: Yessy Ferrari DO Acct: [id number] Unit: [id number] Status: ADM IN [place] [facility] [place] 1019-1 Re10/06/16 Disch: Specimen: [id number] Collected: 10/06/16 Status: RES Req#: [id number] Received: 10/06/16 Source: URINE [facility] [place] Desc : JANET Mancera Dr: ROSARIO MCDONNELL MD Ordered: URINE CULT Procedure Result Verified Site Microbiology VALENTIN CULT URINE Preliminary 10/08/16 PRELIMINARY ID GRAM NEGATIVE ARBEN ID AND SENS TO FOLLOW COLONY COUNT/QUANTITY 10-25,000 CFU/ml X-Rays, CTs and MRIs PROCEDURE: CT ABDOMEN RENAL PROTOCOL INDICATIONS: complex renal mass on Left kidney per u/s TECHNIQUE: Optional 5 mm thick noncontrast images acquired from the diaphragm to the iliac crests. After the administration of intravenous contrast, 5 mm thick images again acquired from the diaphragm to the iliac crests in the arterial and urographic phases. 5 mm thick coronal and sagittal reformats were then acquired. For radiation dose reduction, the following was used: automated exposure control, adjustment of mA and/or kV according to patient size. COMPARISON: [facility] Ultrasound, US, US ABDOMEN, 09/17/2016, 8: 09. FINDINGS: Image quality: Excellent. Lung bases: Lung bases are clear. Heart size is normal. Genitourinary: There is mild symmetrical perinephric fat stranding bilaterally. Kidneys are normal in size. Within the left interpolar kidney anteriorly, corresponding to the other malleus seen by ultrasound, there is a 16mm diameter partially exophytic high density focus which measures 37 Hounsfield units prior to intravenous contrast, and 44 Hounsfield units following intravenous contrast , which does not meet criteria for an enhancing mass. Immediately adjacent to this lesion, there is a smaller, 8mm diameter high density focus within the left interpolar kidney medially. No renal enhancement is otherwise within normal limits. No hydronephrosis. No nephrolithiasis. Proximal ureters are nondistended. Other solid organs: Liver and spleen are normal in size and enhancement. Gallbladder is within normal limits. Biliary system is non dilated. Pancreas enhances normally. Mild adrenal thickening is present bilaterally. No adrenal nodules. Peritoneum and bowel: Unenhanced bowel loops are normal in wall thickness and caliber. No free fluid or air. Nodes and vessels: No retroperitoneal or mesenteric adenopathy by size criteria. Aorta and inferior vena cava are normal in caliber. Bones: No suspicious bony lesions. No vertebral body compression fractures. Miscellaneous: No ventral hernias. IMPRESSION: 1. Findings which are most consistent with 2 adjacent hemorrhagic or proteinaceous fluid-containing cysts within the left interpolar kidney. Followup renal protocol CT in 6 months is recommended to exclude the less likely possibility of neoplasm in this location. 2. Mild bilateral adrenal thickening. Assessment & Plan 66-year-old female presents with multiple URI and abdominal complaints with a history of breast cancer. Hyponatremia may be secondary to increased water intake was resolved however the sodium has decreased again today slightly. -- IV fluids had been discontinued. However, due to apparent dehydration with increased BUN and creatinine and decreased sodium today will restart IV fluids with normal saline. -- Sodium on admission was 122 and since has improved to normal -- We will continue to monitor. Abdominal pain improved may have been secondary to chronic gastroparesis or peptic ulcer disease, or upper pole urinary tract infection -- Patient had an abdominal CT scan showing 2 adjacent hemorrhagic or proteinaceous cysts in the kidney. Repeat CT scan is recommended in 6 months. -- Protonix 40 daily to continue -- We will continue to monitor UTI -- UA positive for Escherichia coli resistant to ciprofloxacin, which would explain why she failed outpatient therapy with ciprofloxacin. -- Follow-up culture and sensitivity pending -- Started on Rocephin daily 1 g, will continue for now. However, if rash develops, or itching worsens, will discontinue. History of breast cancer -- Currently stable -- We have performed MRI of the brain, as some of the patient's symptoms are suspicious for possible metastasis of cancer: MRI shows evidence of sinusitis but no evidence of metastases to the brain. We will continue to treat with Rocephin Diabetes mellitus -- Accu-Cheks before meals at bedtime -- Continue metformin thousand milligrams twice a day -- Continue insulin 35 units twice a day Hypertension -- Blood pressure currently 144/79 -- Continue metoprolol 50 twice a day --Continue lisinopril 20 mg daily -- Continue hydrochlorothiazide 25 mg daily CAD -- Continue aspirin daily -- Nitrostat when necessary -- We will continue to monitor IBS -- Patient currently has diarrhea. Will check stool for infectious pathogens to ensure that patient's diarrhea is from IBS and not an infection. Hyperlipidemia -- Continue Crestor 10 mg daily Pruritus -- Is located in the anterior abdominal wall only and there is still no associated rash. -- This could be due to drug reaction -- Other etiology possible -- We will continue Benadryl and continue to monitor. Hypomagnesemia with magnesium of only 1.3 --We will give 6 g of IV magnesium sulfate today --Check repeat magnesium in a.m. Disposition: Patient has multiple complaints and is not feeling well today. Pruritus is of concern, as patient may be having a drug reaction. Patient did have a CT scan of the abdomen showing cysts in the kidneys which should be followed up in 6 months with a renal CT scan. Patient should follow-up with her primary care physician in regards to this as well. We will restart IV hydration today and give IV magnesium sulfate today. We will give 1 more dose of IV Rocephin in the morning and likely discharge home on IV antibiotics tomorrow Pain Evaluation: Adequate Pain Control GI Prophylaxis: Proton Pump Inhibitor VTE Prophylaxis: Other (Patient is ambulating frequently.) VTE Mechanical Devices: Intermittant Pneumatic CD Resuscitation Status: CPR: Attempt Resuscitation Long Bland MD Oct 09, 2016 22:54
--- NOTE | 2016-10-10 03:21 | NUR ---
Improved pruritus/ Pt. education Pt. reports that the pruritus comes and goes. Upon asking if pt. wanted more benadryl, pt. declined. Gave some pt. education on how electrolyte levels can fluctuate, and pt. verbalized understanding. Will continue to monitor.
[2016-10-10] MEDS: 0.9% Sodium Chloride 1,000 ML IV SCH ×2 (04:43→17:59)
[2016-10-10 04:56] VITALS: BP 129/59; PULSE 67; RESP 20; O2SAT 97
[2016-10-10] MEDS: diphenhydrAMINE 25 mg Capsule PO PRN (05:40)
[2016-10-10 06:08] LABS: BASOPHILS % (AUTO) 0.4 % (0-3); EOSINOPHILS % (AUTO) 2.3 % (0-5); MONOCYTES % (AUTO) 8.6 % (4-12); Mean Corpuscular Hemoglobin 30.2 pg (27.0-35.0); NEUTROPHILS % (AUTO) 55.3 % (40-74); Platelet Count 255 bil/L (150-400)
[2016-10-10] MEDS: Pantoprazole 40 mg ER24 Tablet PO SCH (06:21)
[2016-10-10 06:23] LABS: Magnesium 1.7 mg/dL (1.6-2.6)
--- NOTE | 2016-10-10 07:15 | NUR ---
Lab Result While giving report to day shift RN, this RN got notice that pt. tested positive for C-diff. Day shift RN aware, and paged.
[2016-10-10] MEDS ORDERED: Magnesium Sulf 4 Gm/100 mL H2O 4 GM in IV Premix 1 EACH IV ONE (07:55)
[2016-10-10 08:43] LABS: ERYTHROCYTE SEDIMENTATION RATE 44 mm/hr (0-40)
[2016-10-10] MEDS: Insulin LISPRO 300 Unit/3 mL Inj SUBQ SCH ×4 (09:03→22:00)
[2016-10-10] MEDS: cefTRIAXone Inj 2,000 MG in Dextrose 5% Minibag Plus 50 ML IV SCH (09:04)
[2016-10-10] MEDS: Insulin Human NPH-Reg 70-30 100 Unit/mL 3 mL Pen SUBQ SCH ×2 (09:07→22:49)
[2016-10-10 09:11] VITALS: BP 155/74; PULSE 71
[2016-10-10 14:11] VITALS: BP 135/55; PULSE 59; RESP 18; O2SAT 98
--- NOTE | 2016-10-10 17:36 | NUR ---
Skin/GI//Activity Pt c/o itching along belly. No redness in the area. Skin looked dry, suggested some lotion. Pt said lotion helped the itching. Pt had one formed BM today. Urine is light yellow and clear. Pt c/o some abdominal fullness and right flank pain, has good output and IV fluids running. Will continue to monitor. Pt up independently to bathroom, steady gait. Gave pt care notes on C. diff.
[2016-10-10 20:30] VITALS: BP 146/74; PULSE 60; RESP 20; O2SAT 98
[2016-10-10 21:59] VITALS: BP 163/75; PULSE 68; RESP 20; O2SAT 99
--- NOTE | 2016-10-10 23:28 | PCM.PNMED ---
Subjective Date of Service Oct 10, 2016 Subjective Patient complains of some suprapubic tenderness and mucousy consistency to her urine. She had a bout of diarrhea today as well. She has had some back pain as well. She still does not feel quite well. Exam Vital Signs Vital Sign - Last Date Time Temp Pulse Resp B/P Pulse Ox O2 Delivery O2 Flow Rate FiO2 10/10/16 21:59 36.9 68 20 163/75 99 Room Air Intake and Output 10/09/16 10/09/16 10/10/16 Cumulative From/Thru 15:00 23:00 07:00 10/06/16 12:06 - 10/10/16 06:22 Intake Total 3098 ml 2069 ml 12795 ml Output Total 1200 ml 1950 ml Balance 1898 ml 2069 ml 9205 ml Intake Oral 2400 ml 400 ml 7150 ml IV Total 698 ml 1669 ml 4005 ml Output Urine Total 1200 ml 1950 ml # Voids 3 2 14 # Bowel Movements 1 4 Exam General: Patient is some slight distress over her suprapubic discomfort. She otherwise appears to be in no distress HEENT: Head is atraumatic normocephalic. Eyes: Pupils are equally round and reactive to light and accommodation. Extraocular muscles are intact. Sclera are white anicteric. Subconjunctival mucosa is pink. Ears and nose are unremarkable. Oropharynx: There is no mucosal lesions, there is no thrush, there is no pharyngitis. Neck: Is supple, there are no nodes, or masses or tenderness. Chest: Is clear to auscultation and percussion. There are no rales, rhonchi, wheezes or rubs. Heart: Rate, rhythm is regular. There is no new murmur, rub or gallop. Abdomen: Good bowel sounds are present. Abdomen is soft, nontender, no organomegaly or masses were appreciated. There is no CVA tenderness. Extremities: Are symmetrical and well perfused. There is no edema, there is no cellulitis, no rash. Neurologic: There are no focal neurological deficits. Cranial nerves II through XII are intact. There are no sensory or motor deficits. Psychiatric: Patients mood is calm and shows no sign of agitation. Genital: Deferred Rectal: Deferred Lab and Diagnostics Result Diagram: 10/10/1630 10/10/16529 Microbiology Name: SERENE COTTO Age/Sex: 66/F Attend Dr: Yessy Ferrari DO Acct: [id number] Unit: [id number] Status: ADM IN Location: [facility] [place] 1019-1 Re10/06/16 Disch: Specimen: [id number] Collected: 10/06/16 Status: RES Req#: [id number] Received: 10/06/16 Source: URINE RACQUEL Paulino Desc : JANET Mancera Dr: ROSARIO MCDONNELL MD Ordered: URINE CULT Procedure Result Verified Site Microbiology VALENTIN CULT URINE Preliminary 10/08/16 PRELIMINARY ID GRAM NEGATIVE ARBEN ID AND SENS TO FOLLOW COLONY COUNT/QUANTITY 10-25,000 CFU/ml X-Rays, CTs and MRIs PROCEDURE: CT ABDOMEN RENAL PROTOCOL INDICATIONS: complex renal mass on Left kidney per u/s TECHNIQUE: Optional 5 mm thick noncontrast images acquired from the diaphragm to the iliac crests. After the administration of intravenous contrast, 5 mm thick images again acquired from the diaphragm to the iliac crests in the arterial and urographic phases. 5 mm thick coronal and sagittal reformats were then acquired. For radiation dose reduction, the following was used: automated exposure control, adjustment of mA and/or kV according to patient size. COMPARISON: [facility] Ultrasound, US, US ABDOMEN, 09/17/2016, 8: 09. FINDINGS: Image quality: Excellent. Lung bases: Lung bases are clear. Heart size is normal. Genitourinary: There is mild symmetrical perinephric fat stranding bilaterally. Kidneys are normal in size. Within the left interpolar kidney anteriorly, corresponding to the other malleus seen by ultrasound, there is a 16mm diameter partially exophytic high density focus which measures 37 Hounsfield units prior to intravenous contrast, and 44 Hounsfield units following intravenous contrast , which does not meet criteria for an enhancing mass. Immediately adjacent to this lesion, there is a smaller, 8mm diameter high density focus within the left interpolar kidney medially. No renal enhancement is otherwise within normal limits. No hydronephrosis. No nephrolithiasis. Proximal ureters are nondistended. Other solid organs: Liver and spleen are normal in size and enhancement. Gallbladder is within normal limits. Biliary system is non dilated. Pancreas enhances normally. Mild adrenal thickening is present bilaterally. No adrenal nodules. Peritoneum and bowel: Unenhanced bowel loops are normal in wall thickness and caliber. No free fluid or air. Nodes and vessels: No retroperitoneal or mesenteric adenopathy by size criteria. Aorta and inferior vena cava are normal in caliber. Bones: No suspicious bony lesions. No vertebral body compression fractures. Miscellaneous: No ventral hernias. IMPRESSION: 1. Findings which are most consistent with 2 adjacent hemorrhagic or proteinaceous fluid-containing cysts within the left interpolar kidney. Followup renal protocol CT in 6 months is recommended to exclude the less likely possibility of neoplasm in this location. 2. Mild bilateral adrenal thickening. Assessment & Plan 66-year-old female presents with multiple URI and abdominal complaints with a history of breast cancer. Hyponatremia may be secondary to increased water intake and diarrhea, which was resolved however the sodium has decreased again slightly. -- IV fluids have been continued due to apparent dehydration with increased BUN and creatinine and decreased sodium today will restart IV fluids with normal saline. -- Sodium on admission was 122 and since has improved to close to normal levels -- We will continue to monitor. Abdominal pain improved may have been secondary to chronic gastroparesis or peptic ulcer disease, or upper pole urinary tract infection -- Patient had an abdominal CT scan showing 2 adjacent hemorrhagic or proteinaceous cysts in the kidney. Repeat CT scan is recommended in 6 months. -- Protonix 40 daily to continue -- We will continue to monitor -- Patient continues to complain of pelvic pain/suprapubic tenderness or therefore repeat UA urine C&S. Rule out yeast superinfection UTI -- UA positive for Escherichia coli resistant to ciprofloxacin, which would explain why she failed outpatient therapy with ciprofloxacin. -- Follow-up culture and sensitivity pending -- Started on Rocephin daily 1 g, will continue for now. However, if rash develops, or itching worsens, will discontinue. History of breast cancer -- Currently stable -- We have performed MRI of the brain, as some of the patient's symptoms are suspicious for possible metastasis of cancer: MRI shows evidence of sinusitis but no evidence of metastases to the brain. We will continue to treat with Rocephin Diabetes mellitus -- Accu-Cheks before meals at bedtime -- Continue metformin thousand milligrams twice a day -- Continue insulin 35 units twice a day Hypertension -- Blood pressure currently 144/79 -- Continue metoprolol 50 twice a day --Continue lisinopril 20 mg daily -- Continue hydrochlorothiazide 25 mg daily CAD -- Continue aspirin daily -- Nitrostat when necessary -- We will continue to monitor IBS -- Patient currently has diarrhea. Will check stool for infectious pathogens to ensure that patient's diarrhea is from IBS and not an infection. C. difficile colitis -- Likely exacerbating above conditions -- Add by mouth Flagyl -- Add probiotics Hyperlipidemia -- Continue Crestor 10 mg daily Pruritus stable to improved on Benadryl. Despite continued use of Rocephin. -- Is located in the anterior abdominal wall only and there is still no associated rash. -- This could be due to drug reaction -- Other etiology possible -- We will continue Benadryl and continue to monitor. Hypomagnesemia persist despite IV magnesium given yesterday --Patient was given 6 g of IV magnesium sulfate yesterday --Check repeat magnesium in a.m. Disposition: Patient has multiple complaints and is not feeling well again today. Her main complaint is suprapubic pain today. Pruritus is of concern, as patient may be having a drug reaction. Patient did have a CT scan of the abdomen showing cysts in the kidneys which should be followed up in 6 months with a [address] CT scan. Patient should follow-up with her primary care physician in regards to this as well. We will continue IV hydration today and give IV magnesium sulfate again today. We will give 1 more dose of IV Rocephin in the morning and likely discharge home on IV antibiotics tomorrow. Flagyl started today for C. difficile. Will repeat UA with microscopic exam if needed. Pain Evaluation: Adequate Pain Control GI Prophylaxis: Proton Pump Inhibitor VTE Prophylaxis: Other (Patient is ambulating frequently.) VTE Mechanical Devices: Intermittant Pneumatic CD Resuscitation Status: CPR: Attempt Resuscitation Long Bland MD Oct 10, 2016 23:28
[2016-10-11 00:13] LABS: APPEARANCE,URINE CLEAR (CLEAR,HAZY); COLOR,URINE STRAW (YELLOW); OCCULT BLOOD,URINE NEGATIVE (NEGATIVE); PH,URINE 6.5 (5.0-8.0); UROBILINOGEN,URINE NORMAL (NORMAL)
[2016-10-11 01:01] VITALS: BP 168/76; PULSE 63; RESP 20; O2SAT 100
--- NOTE | 2016-10-11 02:36 | NUR ---
Left Flank Pain/Pressure Patient complains of left flank pain/pressure. Patient states that she feels pressure in abdomen where her urethra would be located. She denies burning or itching when urinating. Patient asked Dr. Bland for UA lab test. UA sample was given and sent down to lab. VSS. Call light within reach. Patient resting comfortably.
[2016-10-11] MEDS: 0.9% Sodium Chloride 1,000 ML IV SCH ×2 (04:06→14:35)
[2016-10-11 05:40] VITALS: BP 168/76; PULSE 63; RESP 20; O2SAT 100
[2016-10-11 06:10] LABS: BASOPHILS % (AUTO) 0.3 % (0-3); EOSINOPHILS % (AUTO) 2.7 % (0-5); MONOCYTES % (AUTO) 11.3 % (4-12); Mean Corpuscular Hemoglobin 30.5 pg (27.0-35.0); Mean Corpuscular Volume 90.5 fL (81-100); NEUTROPHILS % (AUTO) 56.1 % (40-74); Platelet Count 250 bil/L (150-400)
[2016-10-11 06:24] LABS: Magnesium 1.7 mg/dL (1.6-2.6); Phosphorus 3.8 mg/dL (2.5-4.9)
[2016-10-11] MEDS: Pantoprazole 40 mg ER24 Tablet PO SCH (07:49)
[2016-10-11] MEDS: Insulin LISPRO 300 Unit/3 mL Inj SUBQ SCH ×2 (07:56→12:00)
[2016-10-11] MEDS: [UNRECOGNIZED DRUG - OTHER] TOPICAL SCH (08:30)
[2016-10-11] MEDS ORDERED: Magnesium Sulf 4 Gm/100 mL H2O 4 GM in IV Premix 1 EACH IV ONE (08:40)
[2016-10-11 08:44] VITALS: BP 117/69; PULSE 56; RESP 18; O2SAT 98
[2016-10-11] MEDS: cefTRIAXone Inj 2,000 MG in Dextrose 5% Minibag Plus 50 ML IV SCH (09:05)
[2016-10-11] MEDS: Insulin Human NPH-Reg 70-30 100 Unit/mL 3 mL Pen SUBQ SCH (09:07)
[2016-10-11 09:24] VITALS: PULSE 60
--- NOTE | 2016-10-11 12:15 | PCM.DIMED ---
Discharge Instructions Date of Service Oct 11, 2016 Dates of Hospitalization Oct 06, 2016 at 15:52 Discharge Diagnosis Discharge Diagnosis UTI with E. coli Diet No restrictions Activity No restrictions (May resume usual activites gradually as tolerated) Call your provider Fever or Chills, Shortness of breath, Bleeding, Chest pain, Vomitting, Excessive diarrhea, Weakness (unilateral), Other Patient Instructions Follow-up Provider: Clive Wang MD Follow-up with PCP in: 1 week Long Bland MD Oct 11, 2016 12:15
[2016-10-11] MEDS ORDERED: MAGN400T23 PO ×2 (12:26→13:45)
[2016-10-11] MEDS ORDERED: CEFD300C3 PO ×2 (12:26→13:45)
[2016-10-11] MEDS ORDERED: Lactobacillus Acidophilus PO (12:26)
[2016-10-11] MEDS ORDERED: DIPH25CA6 PO ×2 (12:26→13:45)
[2016-10-11] MEDS ORDERED: METR500T PO ×2 (12:26→13:45)
--- NOTE | 2016-10-11 15:17 | NUR ---
Discharge Pt was d/c'd from [facility] room 1019 at 1515 home via private vehicle with family. Discharge teaching and instruction went over with pt. C.Diff care notes given yesterday. All Hardcopy RX in pt folder. VSS. Pt to f/u with PCP in 1 week. IV d/c'd intact. No items in the safe and no items in the pharmacy.
--- NOTE | 2016-10-12 01:09 | PCM.DC.MED ---
Discharge Summary Date of Service Oct 11, 2016 Dates of Hospitalization Date of Hospital Admission Oct 06, 2016 at 15:52 Date of Discharge: Oct 11, 2016 Providers: Admitting Physician: Yessy Ferrari DO Primary Care Physician: Clive Wang MD Attending Physician: Yessy Ferrari DO Diagnosis at Time of Discharge Diagnosis at Time of Discharge UTI with E. coli Procedures XRay, CTs & MRIs PROCEDURE: CT ABDOMEN RENAL PROTOCOL INDICATIONS: complex renal mass on Left kidney per u/s TECHNIQUE: Optional 5 mm thick noncontrast images acquired from the diaphragm to the iliac crests. After the administration of intravenous contrast, 5 mm thick images again acquired from the diaphragm to the iliac crests in the arterial and urographic phases. 5 mm thick coronal and sagittal reformats were then acquired. For radiation dose reduction, the following was used: automated exposure control, adjustment of mA and/or kV according to patient size. COMPARISON: [facility] Ultrasound, US, US ABDOMEN, 09/17/2016, 8: 09. FINDINGS: Image quality: Excellent. Lung bases: Lung bases are clear. Heart size is normal. Genitourinary: There is mild symmetrical perinephric fat stranding bilaterally. Kidneys are normal in size. Within the left interpolar kidney anteriorly, corresponding to the other malleus seen by ultrasound, there is a 16mm diameter partially exophytic high density focus which measures 37 Hounsfield units prior to intravenous contrast, and 44 Hounsfield units following intravenous contrast , which does not meet criteria for an enhancing mass. Immediately adjacent to this lesion, there is a smaller, 8mm diameter high density focus within the left interpolar kidney medially. No renal enhancement is otherwise within normal limits. No hydronephrosis. No nephrolithiasis. Proximal ureters are nondistended. Other solid organs: Liver and spleen are normal in size and enhancement. Gallbladder is within normal limits. Biliary system is non dilated. Pancreas enhances normally. Mild adrenal thickening is present bilaterally. No adrenal nodules. Peritoneum and bowel: Unenhanced bowel loops are normal in wall thickness and caliber. No free fluid or air. Nodes and vessels: No retroperitoneal or mesenteric adenopathy by size criteria. Aorta and inferior vena cava are normal in caliber. Bones: No suspicious bony lesions. No vertebral body compression fractures. Miscellaneous: No ventral hernias. IMPRESSION: 1. Findings which are most consistent with 2 adjacent hemorrhagic or proteinaceous fluid-containing cysts within the left interpolar kidney. Followup renal protocol CT in 6 months is recommended to exclude the less likely possibility of neoplasm in this location. 2. Mild bilateral adrenal thickening. Brief History 66 yo female presents with the c/o cough, sore throat, DUNLAP, facial edema, pelvic pressure, urinary irritation and fatigure for the last week and a half. Patient went to the urgent care twice and had a negative strep at the first visit and then went to a second urgent care and diagnosed with a UTI and dehydration and started on Cipro 500mg BID 2 days ago. The patient stated that she feels that she has not improved and feels that her symptoms are worsening and decided to come to the ER today. After evaluation in the ER patient was admitted to the hospital service. Hospital Course 66-year-old female presents with multiple URI and abdominal complaints with a history of breast cancer. Hyponatremia may be secondary to increased water intake and diarrhea, which was resolved however the sodium has decreased again slightly. -- IV fluids have been continued due to apparent dehydration with increased BUN and creatinine and decreased sodium today will restart IV fluids with normal saline. -- Sodium on admission was 122 and since has improved to close to normal levels -- We will continue to monitor. Abdominal pain improved may have been secondary to chronic gastroparesis or peptic ulcer disease, or upper pole urinary tract infection -- Patient had an abdominal CT scan showing 2 adjacent hemorrhagic or proteinaceous cysts in the kidney. Repeat CT scan is recommended in 6 months. -- Protonix 40 daily to continue -- We will continue to monitor -- Patient continues to complain of pelvic pain/suprapubic tenderness or therefore repeat UA urine C&S. Rule out yeast superinfection UTI -- UA positive for Escherichia coli resistant to ciprofloxacin, which would explain why she failed outpatient therapy with ciprofloxacin. -- Follow-up culture and sensitivity pending -- Started on Rocephin daily 1 g, will continue for now. However, if rash develops, or itching worsens, will discontinue. -- Repeat urinalysis last night was unremarkable. History of breast cancer -- Currently stable -- We have performed MRI of the brain, as some of the patient's symptoms are suspicious for possible metastasis of cancer: MRI shows evidence of sinusitis but no evidence of metastases to the brain. We will continue to treat with Rocephin Diabetes mellitus -- Accu-Cheks before meals at bedtime -- Continue metformin thousand milligrams twice a day -- Continue insulin 35 units twice a day Hypertension -- Blood pressure currently 144/79 -- Continue metoprolol 50 twice a day --Continue lisinopril 20 mg daily -- Continue hydrochlorothiazide 25 mg daily CAD -- Continue aspirin daily -- Nitrostat when necessary -- We will continue to monitor IBS -- Patient currently has diarrhea. Will check stool for infectious pathogens to ensure that patient's diarrhea is from IBS and not an infection. C. difficile colitis -- Likely exacerbating above conditions -- Add by mouth Flagyl -- Add probiotics -- Diarrhea has essentially resolved today Hyperlipidemia -- Continue Crestor 10 mg daily Pruritus stable to improved on Benadryl. Despite continued use of Rocephin. -- Is located in the anterior abdominal wall only and there is still no associated rash. -- This could be due to drug reaction -- Other etiology possible -- We will continue Benadryl and continue to monitor. Hypomagnesemia persist despite IV magnesium given yesterday --Patient was given 6 g of IV magnesium sulfate yesterday --Check repeat magnesium in a.m. Disposition: Patient is stable for discharge today Patient did have a CT scan of the abdomen showing cysts in the kidneys which should be followed up in 6 months with a renal CT scan. Patient should follow-up with her primary care physician in regards to this as well We will give 1 more dose of IV Rocephin today and discharge home on oral antibiotics. Flagyl started yesterday for C. difficile and will continue for 10 days after completion of 4 more days of oral antibiotics for UTI.. Exam Vital Signs (Last) Date Time Temp Pulse Resp B/P Pulse Ox O2 Delivery O2 Flow Rate FiO2 10/11/16 09:24 60 10/11/16 08:44 36.7 18 117/69 98 Room Air Exam General: Patient is in no distress today and feels well today for the first time. HEENT: Head is atraumatic normocephalic. Eyes: Pupils are equally round and reactive to light and accommodation. Extraocular muscles are intact. Sclera are white anicteric. Subconjunctival mucosa is pink. Ears and nose are unremarkable. Oropharynx: There is no mucosal lesions, there is no thrush, there is no pharyngitis. Neck: Is supple, there are no nodes, or masses or tenderness. Chest: Is clear to auscultation and percussion. There are no rales, rhonchi, wheezes or rubs. Heart: Rate, rhythm is regular. There is no new murmur, rub or gallop. Abdomen: Good bowel sounds are present. Abdomen is soft, nontender, no organomegaly or masses were appreciated. There is no CVA tenderness. Extremities: Are symmetrical and well perfused. There is no edema, there is no cellulitis, no rash. Neurologic: There are no focal neurological deficits. Cranial nerves II through XII are intact. There are no sensory or motor deficits. Psychiatric: Patients mood is calm and shows no sign of agitation. Genital: Deferred Rectal: Deferred Test 10/06/16 12:49 10/06/16 17:01 10/10/16 00:01 10/10/16 05:30 Urinalysis Comment None Hold Reynolds Top Tube Received (Received) Urine Color Straw (YELLOW) Urine Appearance Clear (CLEAR,HAZY) Urine pH 6.5 (5.0-8.0) Urine Specific [place] 1.010 (1.003-1.035) Urine Protein Negativemg/dL (NEG,TRACE) Urine Glucose (UA) Negativemg/dL (NEGATIVE) Urine Ketones Negativemg/dL (NEGATIVE) Urine Occult Blood Negative (NEGATIVE) Urine Nitrite Negative (NEGATIVE) Urine Bilirubin Negative (NEGATIVE) Urine Urobilinogen Normalmg/dL (NORMAL) Urine Leukocyte Esterase Negative (NEGATIVE) Urine RBC 0-2/hpf (0-2) Urine WBC 0-5/hpf (0-5) Urine Epithelial Cells Few/hpf (NONE-MOD) Urine Crystals None seen (NONE SEEN) Urine Bacteria None/hpf (NONE-FEW) Urine Hyaline Casts None/lpf (NONE) Urine Granular Casts None seen (NONE SEEN) Urine Waxy Casts None seen (NONE SEEN) Urine Red Blood Cell Casts None seen (NONE SEEN) Urine White Blood Cell Casts None seen (NONE SEEN) Urine Mucus None seen (None Seen) Urine Trichomonas None seen (NONE SEEN) Urine Yeast None (NONE SEEN) Urine Culture Reflexed Not indicated Erythrocyte Sedimentation Rate 44mm/hr (0-40) C-Reactive Protein 0.2mg/dL (0.0-0.5) Procalcitonin < 0.05ng/mL (See Comment) Test 10/11/16 05:40 White Blood Count 7.7th/mm3 (3.8-10.1) Red Blood Count 3.80mil/mm3 (3.90-5.20) Hemoglobin 11.6g/dL (12.0-15.6) Hematocrit 34.4% (35.0-46.0) Mean Corpuscular Volume 90.5fL (81-100) Mean Corpuscular Hemoglobin 30.5pg (27.0-35.0) Mean Corpuscular Hemoglobin Concent 33.7% (32.0-37.0) Red Cell Distribution Width 12.5% (12.3-15.4) Platelet Count 250bil/L (150-400) Neutrophils (%) (Auto) 56.1% (40-74) Lymphocytes (%) (Auto) 29.3% (14-46) Monocytes (%) (Auto) 11.3% (4-12) Eosinophils (%) (Auto) 2.7% (0-5) Basophils (%) (Auto) 0.3% (0-3) Sodium Level 136mEq/L (134-144) Potassium Level 4.4mEq/L (3.5-5.2) Chloride Level 99mEq/L (97-108) Carbon Dioxide Level 18mmol/L (18-29) Blood Urea Nitrogen 17mg/dL (8-27) Creatinine 0.73mg/dL (0.57-1.00) Estimat Glomerular Filtration Rate 114mL/min (>59) Glucose Level 87mg/dL (60-99) Calcium Level 8.6mg/dL (8.5-10.1) Phosphorus Level 3.8mg/dL (2.5-4.9) Magnesium Level 1.7mg/dL (1.6-2.6) Total Bilirubin 0.2mg/dL (0.0-1.2) Aspartate Amino Transf (AST/SGOT) 21U/L (0-50) Alanine Aminotransferase (ALT/SGPT) 18U/L (0-32) Alkaline Phosphatase 73U/L (25-165) Total Protein 6.1g/dL (6.4-8.4) Albumin 3.7g/dL (3.4-5.0) Microbiology Results Name: SERENE COTTO Age/Sex: 66/F Attend Dr: Yessy Ferrari DO Acct: [id number] Unit: [id number] Status: ADM IN Location: [facility] 1019-1 Re10/06/16 Disch: Specimen: [id number] Collected: 10/06/16 Status: RES Req#: [id number] Received: 10/06/16 Source: URINE RACQUEL Paulino Desc : JANET Mancera Dr: ROSARIO MCDONNELL MD Ordered: URINE CULT Procedure Result Verified Site Microbiology VALENTIN CULT URINE Preliminary 10/08/16 PRELIMINARY ID GRAM NEGATIVE ARBEN ID AND SENS TO FOLLOW COLONY COUNT/QUANTITY 10-25,000 CFU/ml Discharge Medications Discharge Medications ([Lactobacillus Acidophilus]) 1 TABLET TABLET 2 TABLET PO PCHS Prescribed by: SONIA BLAND MD Ammonium Lactate (Ammonium Lactate) 140 Gm Cream..g. 140 GM TP DAILY (Reported) Ascorbate Calcium (Vitamin C) 500 Mg Tablet 500 MG PO DAILY (Reported) Aspirin (Aspirin) 81 Mg Tablet 81 MG PO DAILY (Reported) Calcium Carbonate/Vitamin D3 (Calcium 1,000 + D3 Caplet) 1 Each Tablet 1 EACH PO DAILY (Reported) Cefdinir (Cefdinir) 300 Mg Capsule 300 MG PO BID Prescribed by: SONIA BLAND MD Cholecalciferol (Vitamin D3) (Vitamin D3) 2,000 Unit Capsule 2,000 UNIT PO DAILY (Reported) Hydrochlorothiazide (Hydrochlorothiazide) 25 Mg Tablet 25 MG PO DAILY (Reported ) Insulin Human Isophan/Regular (HUMulin 70/30 U100 Insulin Vial) 100 Unit/Ml Ml 35 UNIT SUBQ BID (Reported) Lisinopril (Lisinopril) 20 Mg Tablet 20 MG PO DAILY (Reported) Magnesium Oxide (Mag-Oxide) 400 Mg Tablet 400 MG PO BID Prescribed by: SONIA BLAND MD Metformin (Glucophage) 500 Mg Tablet 1,000 MG PO BID (Reported) Metoprolol Tartrate (Metoprolol Tartrate) 50 Mg Tablet 50 MG PO BID (Reported) Metronidazole (Flagyl) 500 Mg Tablet 500 MG PO Q8H Prescribed by: SONIA BLAND MD Multivitamin (Once Daily) 1 Each Tablet 1 EACH PO DAILY (Reported) Omeprazole (Omeprazole) 20 Mg Capsule.dr 20 MG PO DAILY (Reported) Oxyquinoline/Sod.lauryl Sulfat (Trimo-Pereira Jelly) 113.4 Gm Jelly.appl 1 GM VG twice a week (Reported) Rosuvastatin Calcium (Crestor) 10 Mg Tablet 10 MG PO DAILY (Reported) Ubidecarenone (Co Q-10) 300 Mg Capsule 300 MG PO DAILY (Reported) As needed Nitroglycerin SL (Nitrostat) 0.4 Mg Tab.subl 0.4 MG SL Q5MIN PRN PRN For Chest Pain (Reported) Phenazopyridine (Phenazopyridine #3PP) 200 Mg Tab 200 MG PO TID PRN PRN For Pain (Reported) diphenhydrAMINE HCl (Benadryl) 25 Mg Capsule 25 MG PO Q4 PRN PRN For Itching Prescribed by: SONIA BLAND MD Followup Plan Disposition: She is being discharged home with her and her daughter. Discharge Diet: No restrictions Discharge Activity: No restrictions (May resume usual activites gradually as tolerated) Follow-up Provider: Clive Wang MD Follow-up with PCP in: 1 week Time spent Time spent on discharging this patient was greater than 35 minutes, over half of which was involved in counseling and coordination of care. Long Bland MD Oct 12, 2016 01:09
== END 2016-10-11 15:15 | disposition home or self-care (01) | DRG 641 ==
LOC: SED 11:44 → OSC 15:52
PROVIDERS: ADMIT Neuromusculoskeletal Medicine & OMM; ATTEND Neuromusculoskeletal Medicine & OMM
DX: E87.1 Hypo-osmolality and hyponatremia (principal); N39.0 Urinary tract infection, site not specified; A04.7 Enterocolitis due to Clostridium difficile; E11.9 Type 2 diabetes mellitus without complications; I10 Essential (primary) hypertension; K21.9 Gastro-esophageal reflux disease without esophagitis; I25.10 Atherosclerotic heart disease of native coronary artery without angina pectoris; E78.5 Hyperlipidemia, unspecified; Z85.3 Personal history of malignant neoplasm of breast; J01.00 Acute maxillary sinusitis, unspecified; R51 Headache; L29.9 Pruritus, unspecified; B96.20 Unspecified Escherichia coli [E. coli] as the cause of diseases classified elsewhere

== ENCOUNTER 2017-02-17 11:56 | Observation (INO) | payer MEDICARE ==
[2017-02-17] VITALS (7 sets, daily range): BP systolic 139–201; BP diastolic 49–78; PULSE 57–74; RESP 14–18; O2SAT 97–99
[~2017-02-17] VITALS: Ht 162.6 cm; Wt 87.4 kg
[~2017-02-17 11:56] MED LIST changes: -AMMO1SOL2 MC; +AMMO385C5 TP; +CEFD300C3 PO; +CREST10T PO; +DIPH25CA6 PO; +INS7030 SUBQ; +Lactobacillus Acidophilus PO; +MAGN400T23 PO; -METF-496 PO; +METF500T PO; +METR500T PO; +MULT-666 PO; +NITR0.4T SL; -NOVO7030I SUBQ; +OXYQ113.2 VG; +PHEN-777 PO; +UBID300C PO
[2017-02-17 13:23] LABS: BASOPHILS % (AUTO) 0.4 % (0-3); EOSINOPHILS % (AUTO) 1.6 % (0-5); Mean Corpuscular Hemoglobin 30.4 pg (27.0-35.0); Mean Corpuscular Volume 94.3 fL (81-100); Platelet Count 224 bil/L (150-400)
[2017-02-17] MEDS ORDERED: ISOS30TA4 PO (13:35)
--- NOTE | 2017-02-17 13:39 | ED.REPORT ---
HPI-General Illness Date of Service Feb 17, 2017 ED Provider: Dr. Piper Rucker The patient is a 67 year old female w/ a hx of DM, GERD, and HTN who presents to the ED due to bilateral foot numbness onset 3 weeks ago. As a correction diabetic, she has always struggled with mild extremity numbness, but in the past month it has drastically increased in severity. She can barely feel either of her feet. Last night at 0300, she also began to experience unprecedented tingling and prickling in the right side of her face and head. She has taken all her medication today and denies any other associated symptoms. Nursing Notes Stated Complaint: FACIAL NUMBNESS,TINGLING EXTREMITIES Chief Complaint: Neuro Symptoms/ Deficits Nursing Notes Reviewed: Yes Allergies: Coded Allergies: latex (Verified Allergy, Severe, ITCH/RED WITH GLOVES, 02/17/17) clindamycin (Verified Allergy, Mild, Rash, 02/17/17) nitrofurantoin (Verified Allergy, Mild, Rash, 02/17/17) Scheduled ([Lactobacillus Acidophilus]) 1 TABLET TABLET 2 TABLET PO PCHS Ammonium Lactate (Ammonium Lactate) 140 Gm Cream..g. 140 GM TP DAILY Ascorbate Calcium (Vitamin C) 500 Mg Tablet 500 MG PO DAILY Aspirin (Aspirin) 81 Mg Tablet 81 MG PO DAILY Calcium Carbonate/Vitamin D3 (Calcium 1,000 + D3 Caplet) 1 Each Tablet 1 EACH PO DAILY Cholecalciferol (Vitamin D3) (Vitamin D3) 2,000 Unit Capsule 2,000 UNIT PO DAILY Hydrochlorothiazide (Hydrochlorothiazide) 25 Mg Tablet 25 MG PO DAILY Insulin Human Isophan/Regular (HUMulin 70/30 U100 Insulin Vial) 100 Unit/Ml Ml 35 UNIT SUBQ BID Isosorbide MN ER (Isosorbide MN ER) 30 Mg Tab.er.24h 30 MG PO DAILY Lisinopril (Lisinopril) 20 Mg Tablet 20 MG PO DAILY Magnesium Oxide (Mag-Oxide) 400 Mg Tablet 400 MG PO BID Metformin (Glucophage) 500 Mg Tablet 1,000 MG PO BID Metoprolol Tartrate (Metoprolol Tartrate) 50 Mg Tablet 50 MG PO BID Multivitamin (Once Daily) 1 Each Tablet 1 EACH PO DAILY Omeprazole (Omeprazole) 20 Mg Capsule.dr 20 MG PO DAILY Oxyquinoline/Sod.lauryl Sulfat (Trimo-Epreira Jelly) 113.4 Gm Jelly.appl 1 GM VG twice a week Rosuvastatin Calcium (Crestor) 10 Mg Tablet 10 MG PO DAILY Ubidecarenone (Co Q-10) 300 Mg Capsule 300 MG PO DAILY Scheduled PRN Nitroglycerin SL (Nitrostat) 0.4 Mg Tab.subl 0.4 MG SL Q5MIN PRN PRN For Chest Pain General Time Seen by MD: 13:38 Chief Complaint Other (bilateral foot numbness) Hx Obtained From: Patient Arrived By: Walk-in Sudden in Onset?: Yes Onset Occurred: 9 - 12 hours ago Symptom Duration: Since onset Severity: Current: No pain currently Associated with: Reports: Numb extremities Recent Healthcare: No recent doctor visit, No recent hospitalization Similar Sx Previous: No Past Medical History Past Medical History gastroporesis atherosclerotic disease breast cancer with radiation Reports: Diabetes mellitus, GERD, Hypertension Past Surgical History lumpectomy of left breast Reports: Tonsillectomy Smoking History Never Smoker Social History second hand smoke at the [employer] Alcohol Use: Denies alcohol use Drug Use: Denies drug use Ambulatory Status Independent Review of Systems Full Review of Systems Constitutional: Denies: Chills, Fever Respiratory: Denies: Shortness of breath GI: Denies: Diarrhea, Nausea, Vomiting Musculoskeletal: Denies: Extremity pain Neurologic: Reports: Dizziness, Numbness, Weakness Complete sys rev & neg: except as marked. Physical Exam Vital Signs Vital Signs Date Time Temp Pulse Resp B/P Pulse Ox O2 Delivery O2 Flow Rate FiO2 02/17/17 14:14 58 16 139/56 97 Room Air 02/17/17 11:57 36.2 74 16 201/78 98 Room Air Initial VS: Reviewed, Vital signs abnormal General/Constitutional: Awake, Alert, Cooperative Head / Eyes: Normocephalic, PERRL, EOMI Cardiovascular: Heart rate NL, Regular rhythm, Heart sounds NL Abdomen: Atraumatic, Soft, Non-tender Upper Extremities Upper Extremity / MS: No deformity decreased sensation and stocking distribtuion to hands Lower Extremity / Pelvis / MS: No deformity decreased sensation and stocking distribtuion to hands and legs Skin: Atraumatic, Warm, Dry Neurologic: Oriented X3, Speech NL, No motor deficits Interpretation & Diagnostics Lab Results Interpretation Result Diagram: 02/17/17 1315 02/17/17 1315 Test 02/17/17 13:15 White Blood Count 8.1th/mm3 (3.8-10.1) Red Blood Count 4.01mil/mm3 (3.90-5.20) Hemoglobin 12.2g/dL (12.0-15.6) Hematocrit 37.8% (35.0-46.0) Mean Corpuscular Volume 94.3fL (81-100) Mean Corpuscular Hemoglobin 30.4pg (27.0-35.0) Mean Corpuscular Hemoglobin Concent 32.3% (32.0-37.0) Red Cell Distribution Width 12.8% (12.3-15.4) Platelet Count 224bil/L (150-400) Neutrophils (%) (Auto) 71.0% (40-74) Lymphocytes (%) (Auto) 19.9% (14-46) Monocytes (%) (Auto) 7.0% (4-12) Eosinophils (%) (Auto) 1.6% (0-5) Basophils (%) (Auto) 0.4% (0-3) Prothrombin Time 9.6sec (8.1-12.5) Prothromb Time International Ratio 0.90ratio Sodium Level 138mEq/L (134-144) Potassium Level 4.5mEq/L (3.5-5.2) Chloride Level 101mEq/L (97-108) Carbon Dioxide Level 21mmol/L (18-29) Blood Urea Nitrogen 20mg/dL (8-27) Creatinine 0.74mg/dL (0.57-1.00) Estimat Glomerular Filtration Rate 111mL/min (>59) Glucose Level 231mg/dL (60-99) Calcium Level 9.5mg/dL (8.5-10.1) Magnesium Level 1.6mg/dL (1.6-2.6) Total Bilirubin 0.3mg/dL (0.0-1.2) Aspartate Amino Transf (AST/SGOT) 20U/L (0-50) Alanine Aminotransferase (ALT/SGPT) 17U/L (0-32) Alkaline Phosphatase 102U/L (25-165) Troponin T < 0.010ug/L (0.0-0.011) Total Protein 7.3g/dL (6.4-8.4) Albumin 4.0g/dL (3.4-5.0) Hold Reynolds Top Tube Received (Received) CT Head Interpretation IMPRESSION: 1. No acute intracranial hemorrhage. 2. Mild parenchymal volume loss and chronic small vessel ischemic changes. Dictated by: Sean Toledo M.D. on 02/17/2017 at 13:14 Approved by: Sean Toledo M.D. on 02/17/2017 at 13:16 Study: Head CT no contrast Interpretation / Wet Read by: Interpret - Radiologist Re-Eval/Medical Decision Med Decision/Clinical Course The patient's complaint is worsening of her peripheral neuropathy over the past 2 weeks. I am concerned about her facial numbness which started last night. The patient is out of the window for TPA and she has minimal symptoms. She noted that since her symptoms started last night she has been hypertensive. Her initial blood pressure was 200 which may be related to a CVA. Her repeat came down to 138 and then it went back up again to 150s. The patient's symptoms did not change with any change in her blood pressure. Her initial studies were unremarkable. I spoke with Dr. Escamilla at 1516, he accepted the patient for admission. Time of Eval: 14:51 Patient Status: Condition improved Re-Evaluation/Progress Note: Pt rechecked. Discussed negative CT results. Time of Eval: 15:06 Re-Evaluation/Progress Note: Pt rechecked. Discussed need for admission. Pt understands and agrees with plan. Counseled Regarding: Diagnosis, Lab results, Need for admission Discharge & Departure Primary Impression: Peripheral neuropathy Peripheral neuropathy type: polyneuropathy, unspecified Qualified Code: G62.9 - Polyneuropathy, unspecified Additional Impression: CVA (cerebral vascular accident) CVA mechanism: unspecified Qualified Code: I63.9 - Cerebral infarction, unspecified Disposition: ADMITTED TO HOSPITAL Discharge Condition All VS Reviewed: Yes Condition: Stable Referrals: Clive Wang MD (PCP) Anand Attestation Portion of this note were transcribed by Shelli López. IDr. Rucker , personally performed the history, physical exam, and medical decision-making: I reviewed and confirmed the accuracy for the information in the transcribed note. Signed by: anand Vivas, 02/17/17 1500 copies to: Clive Wang MD, Jena M MD Feb 17, 2017 13:39 Shelli López Feb 17, 2017 13:51
[2017-02-17 13:55] LABS: TROPONIN T < 0.010 ug/L (0.0-0.011)
[2017-02-17 14:03] LABS: Magnesium 1.6 mg/dL (1.6-2.6)
[2017-02-17 14:08] LABS: INR 0.9 ratio
--- NOTE | 2017-02-17 14:18 | DRSVH ---
PROCEDURE: CT BRAIN WITHOUT CONTRAST ([id number]) INDICATIONS: Stroke TECHNIQUE: Noncontrast 4.5 mm thick angled axial sections acquired from the foramen magnum to the vertex, with c oronal reformats. COMPARISON: [facility], MR, MR BRAIN W&WO CON, 10/06/2016, 21:26. FINDINGS: Image quality: Diagnostic. Brain: There is no acute intra-axial or extra-axial hemorrhage. No extra-axial fluid collection is i dentified. There is no midline shift or mass effect. The orbits are grossly unremarkable. No large areas of diffusely decreased attenuation are evident within the brain to suggest diffuse cer ebral edema. Subtle areas of low attenuation within the deep white matter of the supratentorial brai n appear to be present. The ventricles and cortical sulci are age-appropriate, but mildly prominent. Bones: Calvarium and visualized facial bones are grossly intact. The imaged paranasal sinuses and m astoid air cells are clear. IMPRESSION: 1. No acute intracranial hemorrhage. 2. Mild parenchymal volume loss and chronic small vessel ischemic changes. Dictated by: Sean Toledo M.D. on 02/17/2017 at 13:14 Approved by: Sean Toledo M.D. on 02/17/2017 at 13:16
[2017-02-17] MEDS ORDERED: Alum-Mag Hydrox-Simeth 30 mL Suspension PO PRN ×2 (15:35→17:30)
[2017-02-17] MEDS ORDERED: Ondansetron 2 mg/mL 2 mL Inj IVPUSH PRN ×2 (15:35→17:30)
[2017-02-17 16:30] LABS: APPEARANCE,URINE CLOUDY (CLEAR,HAZY); COLOR,URINE RED (YELLOW); OCCULT BLOOD,URINE NEGATIVE (NEGATIVE); UROBILINOGEN,URINE NORMAL (NORMAL)
[2017-02-17] MEDS ORDERED: MAGN400T4 PO (16:35)
[2017-02-17] MEDS ORDERED: ROSU5TAB PO (16:39)
[2017-02-17] MEDS ORDERED: CRAN200C2 PO (16:39)
--- NOTE | 2017-02-17 17:01 | NUR ---
Admit 1600 Pt arrived to room 251-1 via w/ch from ER. Able to stand and transfer into bed, then scale indep. Orientated to room and call light. Pt used phone to call family and notify of arrival. Pt has boot for left foot - has dislocated big toe and torn ligament on the 2nd toe.
[2017-02-17] MEDS ORDERED: Polyethylene Glycol (PEG) 17 Gm Powder PO PRN (17:30)
[2017-02-17] MEDS ORDERED: LORazepam 1 mg Tablet PO STA (17:41)
--- NOTE | 2017-02-17 18:26 | HP ---
[address] [address] HISTORY AND PHYSICAL PATIENT: SERENE COTTO : 1950 MR#: [id number] ADMIT: 02/17/2017 JOB ID: [id number] PRIMARY CARE PROVIDER: Dr. Wang. Security And Compliance Project Manager: Dr. Matos. Patient admitted from the ED, observational status. [facility] team. CHIEF COMPLAINT: Facial numbness and feet and hand numbness. HISTORY OF PRESENT ILLNESS: This is a 67-year-old female with diabetes who presents to the ED because she developed right-sided facial numbness at like 4:30 in the morning. Did not get better, so she came into the ED. She says it is a little numb on that whole side, more upper, and she says it may be moving over to the left side also. No trauma. No significant headache. No fevers. However, the patient has also noted numbness and tingling in her feet and hands. She has had this for many years, but over the last 2-3 weeks, it has gotten much worse to the point that she is having trouble feeling things in her feet and her hands, feet worse than hands. There is almost a sensory level, she says, just above the ankles. She also noticed that this got a little bit worse starting in October or November after she was started on Crestor. However, the last two or three weeks it has gotten significantly worse. Again, no trauma, fevers, headache or other complaints. REVIEW OF SYSTEMS: Complete review of systems obtained from patient, all pertinent positives in HPI above, rest of review of systems are negative. PAST MEDICAL HISTORY: 1. Type 2 diabetes, insulin using. 2. Hypertension. 3. Gastroparesis. 4. Breast cancer lumpectomy x2 followed by radiation, 2004. 5. Coronary artery disease. 6. IBS. 7. Possible mass on kidney by CT on September 30 of this year. 8. Dystrophy of eyes. 9. Tonsillectomy. 10. Left cataract surgery. ALLERGIES: 1. LATEX. 2. CLINDAMYCIN. 3. NITROFURANTOIN. SOCIAL HISTORY: Patient lives with her . Does not smoke. Consumes no alcohol. There is no drug use. FAMILY HISTORY: Mother had diabetes, hypertension, aortic stenosis and a stroke. Father at age 82 with bowel ischemia. PHYSICAL EXAMINATION: Blood pressure was elevated 201/78 on arrival to the ED. Currently has come down to 156/72. No fever, pulse 61, respiratory rate 14 and O2 sats are normal. Skin is warm and dry. Neuro exam: Eyes are PERRLA. EOM are intact. No nystagmus. The patient has no focal neuro deficits to any of the facial muscles. She does have pinprick, decreased sensation to the right side of her face, not absent but diminished. Motor exam of all four extremities essentially normal and symmetrical. Envzvy-xp-lzsg is a little more difficult on the left than the right but probably okay. Sensory exam shows decreased pinprick sensation ankles down on both feet and somewhat in both hands, equal on both sides. Does not appear to have a really clear defined sensory level. Patellar reflexes are 2+ on the left and 3+ on the right. Cannot elicit ankle reflexes. Mouth shows adequate hydration. No JVD. No bruits. Cardiac is regular. No significant murmur. Lungs clear to auscultation and percussion. Abdomen is soft, nonacute, benign. Extremities showed no edema. ANALYSIS AND PLAN: 1. Facial numbness present on admission. Active. Obviously, a stroke is possible here. We are going to continue the patient's aspirin and will get an MRI acute stroke protocol tonight. Will be holding the Crestor for reasons enumerated below. 2. Numbness in hands and feet, progressively worse. Present on admission. Active. This is suggestive of a polyneuropathy. The patient clearly has diabetes and has chronic polyneuropathy on this basis, but it has gotten much worse, could this be the Crestor which has been known to cause a polyneuropathy. At this time, we are going to hold the Crestor and will send laboratory data to include RPR, thyroid tests, B12, HIV, Lyme disease, LELA, hepatitis panel, ESR and a CPK. Depending on the MRI results and results of the laboratory tests ordered tonight, we will make further decisions tomorrow. 3. Kidney cyst noted on CT, September 30, 2016, present on admission. Chronic. The patient was to get a repeat CT next month and due to the issues enumerated above, I will go ahead and get that CT now as a possibility of malignancy exists in that lesion. 4. Type 2 diabetes, insulin using. Will continue with the patient's 70/30 insulin 40 b.i.d., metformin and get a hemoglobin A1c. 5. Hypertension. The patient's blood pressure was pretty high when she came in. We are going to continue with her metoprolol and lisinopril and monitor that closely. We will make further adjustments if needed. 6. Coronary artery disease. Present on admission. Stable. Will continue with the patient's aspirin, hydrochlorothiazide, lisinopril, metoprolol. Crestor be held for reasons enumerated above. 7. CODE STATUS: FULL CODE. MTDD
--- NOTE | 2017-02-17 18:32 | NUR ---
1809 to MRI in w/ch
--- NOTE | 2017-02-17 18:53 | NUR ---
PVR 1750 = 12 ml
[2017-02-17] MEDS ORDERED: Dextrose 10% 250 ML IV ONE (19:40)
[2017-02-17] MEDS ORDERED: Glucose 40% Oral Gel 15 Gm Tube PO PRN (19:40)
--- NOTE | 2017-02-17 19:51 | DRSVH ---
PROCEDURE: MRI STROKE PROTOCOL ([id number]) Pre- and post-contrast brain MRI, non-contrast brain MR angiogram, pre- and postcontrast neck MR kathrin ogram INDICATIONS: right sided facial numbness TECHNIQUE: Brain: Noncontrast axial T1 spin echo, axial T2 fast spin echo, sagittal and axial FLAIR, coronal T2 fast spin echo, axial gradient echo, axial diffusion and ADC through the brain. After the administr ation of contrast, axial 3D VIBE of the cranial vasculature and brain. Brain MRA: Non-contrast 3-D time of flight MR angiogram, with multiple bcbqwaj-lodyvvucl-ycbmoejjwf (MIP) reformats performed. Neck MRA: Axial and sagittal TruFISP through the neck. Coronal dynamic MR angiogram during administ ration of contrast in the arterial and venous phases, with 3-dimenstional bangjhg-drniycpmh-nmvhjanfa n (MIP) reformats constructed from subtraction images. COMPARISON: [facility], CT, CT ANGIO CHEST PE, 06[facility]17[facility]2016, 15:57[facility], 02/17/2017, 14:04. [facility], MR, MR BRAIN W&WO CON, 10/06/2016, 21:26. FINDINGS: Image quality: Excellent. BRAIN: CSF spaces: Ventricles are normal in size and shape. Basal cisterns are patent. No extra-axial flu id collections. Brain: Again noted is a small old left pontine lacunar infarct. No intracranial bleeds or mass effec ts. Mild cerebral volume loss. There are mild chronic microvascular ischemic changes. Finch-white mat ter interface is normal. Diffusion weighted images show no acute ischemic insults. Brainstem appear s normal. Normal intravascular flow voids are present. No abnormal intracranial enhancement. Skull and face: Calvarial marrow signal is normal. Orbits appear normal. Sinuses: Sinuses and mastoids are clear. BRAIN MR ANGIOGRAM: Anterior circulation: Intracranial internal carotid arteries are normal in size and enhancement. Th e flow within the paired anterior cerebral arteries is normal and symmetric. The flow within the mid dle cerebral arteries is normal and symmetric. The anterior communicating artery is seen. No stenos es, occlusions, or aneurysms. Posterior circulation: The visualized portions of the vertebral arteries demonstrate normal caliber, and join to form a normal appearing basilar artery. There is a high-grade stenosis in the proximal l eft posterior cerebral artery. The right posterior cerebral artery demonstrates is normal caliber. N o occlusions or aneurysms. NECK MR ANGIOGRAM: Carotids: Great vessels demonstrate a conventional anatomy as they arise from the aortic arch. The origins of the common carotid arteries appear patent. The calibers and courses of both common caroti d arteries are normal. The bifurcation regions appear normal bilaterally. The internal carotid lorelei buffy demonstrate normal course and caliber. Posterior circulation: The origins of the vertebral arteries appear patent. More superior portions of both vertebral arteries demonstrate normal course and caliber, and join to form a normal appearing basilar artery. Miscellaneous: Subclavian arteries appear patent. Pre-contrast images through the neck show no soft tissue abnormalities. There are small thyroid nodules bilaterally. IMPRESSION: BRAIN MRI: 1. No acute intracranial abnormalities. 2. An old left pontine lacunar infarct. 3. Cerebral volume loss and chronic microvascular ischemic changes. BRAIN MR ANGIOGRAM: 1. No significant stenosis or occlusion in anterior circulations. 2. There is a high-grade stenosis (80%) in the proximal left posterior cerebral artery. NECK MR ANGIOGRAM: 1. No high-grade stenosis or occlusion in carotid arteries bilaterally. 2. No high-grade stenosis or occlusion in vertebral arteries bilaterally. 3. Small thyroid nodules bilaterally. Ultrasound followup suggested. The estimate of stenosis included in the report of the imaging study was calculated using the NASCET method Dictated by: Ronnie North M.D. on 02/17/2017 at 19:36 Approved by: Ronnie North M.D. on 02/17/2017 at 19:49
--- NOTE | 2017-02-17 20:09 | DRSVH ---
PROCEDURE: CT ABDOMEN RENAL PROTOCOL INDICATIONS: follow up on questionalble kidney mass 09/2016 ct TECHNIQUE: Optional 5 mm thick noncontrast images acquired from the diaphragm to the iliac crests. After the ad ministration of intravenous contrast, 5 mm thick images again acquired from the diaphragm to the jimmie c crests in the arterial and urographic phases. 5 mm thick coronal and sagittal reformats were then acquired. For radiation dose reduction, the following was used: automated exposure control, adjustm ent of mA and/or kV according to patient size. COMPARISON: [facility], CT, CT ABD RENAL PROTOCOL, 10/06/2016, 15:11. FINDINGS: Image quality: Excellent. Lung bases: Lung bases are clear. Heart size is normal. Genitourinary: There are 2 hyperdense nodules in anterior cortex of left kidney, measuring 1.6 cm and 0.7 cm, unchanged in size compared to the last examination. Kidneys are normal in size and symmetric al in enhancement. No renal calculi or hydronephrosis. Other solid organs: Liver and spleen are normal in size and enhancement. Gallbladder is normal. Bi liary system is non dilated. Pancreas enhances normally. No adrenal nodules. Peritoneum and bowel: Unenhanced bowel loops are normal in wall thickness and caliber. No free flui d or air. Nodes and vessels: No retroperitoneal or mesenteric adenopathy by size criteria. Aorta and inferior vena cava are normal in caliber. Bones: No suspicious bony lesions. No vertebral body compression fractures. Miscellaneous: There is a tiny fat-containing hernia. IMPRESSION: 1. Two small hyperdense nodules in the anterior cortex of the left kidney, most likely small hyperden se cyst. Both nodules are stable in size compared to last CT. 2. Tiny fat-containing umbilical hernia. Dictated by: Ronnie North M.D. on 02/17/2017 at 20:02 Approved by: Ronnie North M.D. on 02/17/2017 at 20:07
[2017-02-17] MEDS ORDERED: Insulin Human NPH-Reg 70-30 100 Unit/mL 10 ML Mdv SUBQ SCH (20:30)
[2017-02-17] MEDS ORDERED: Dextrose 10% 250 ML IV PRN (20:45)
--- NOTE | 2017-02-17 20:47 | NUR ---
Case Management: Explained CHAVEZ to patient, spouse and many other family members at 2034, all questions answered. Signed original placed in chart, copy given to patient. Rut Duarte RN
[2017-02-17] MEDS: Insulin LISPRO 300 Unit/3 mL Inj SUBQ SCH (22:00)
[2017-02-17] MEDS: Lactobacillus Rhamnosus 10 Bil Unit Capsule PO SCH (22:00)
[2017-02-18 00:31] VITALS: BP 154/71; PULSE 63; RESP 16; O2SAT 99
[2017-02-18 05:00] VITALS: BP 156/78; PULSE 78; RESP 17; O2SAT 98
[2017-02-18 06:13] LABS: Hepatitis A Antibody IgM Negative (Negative); Hepatitis B Core Antibody IgM Negative (Negative)
--- NOTE | 2017-02-18 06:22 | NUR ---
Shift Note Assumed pt care at 1900, 1925 pt back to room from CT and MRI via wheelchair, Pt's systolic Bp's mid 150's throughout night, pt on neurochecks q4, at 0500 pt reports facial numbness and generalized upper and BLE numbness "getting better", call light in reach at all times.
[2017-02-18] MEDS ORDERED: Pantoprazole 40 mg ER24 Tablet PO SCH (06:30)
[2017-02-18 07:16] LABS: Vitamin B12 711 pg/mL (211-946)
[2017-02-18 07:16] LABS: Hemoglobin A1C 7.9 % (4.8-5.6)
[2017-02-18] MEDS: Insulin LISPRO 300 Unit/3 mL Inj SUBQ SCH ×2 (08:00→11:44)
[2017-02-18 08:08] VITALS: BP 155/82; PULSE 61; RESP 16; O2SAT 98
[2017-02-18] MEDS ORDERED: Isosorbide Mononitrate 30 mg ER24 Tablet PO SCH (08:30)
[2017-02-18] MEDS: Lactobacillus Rhamnosus 10 Bil Unit Capsule PO SCH ×2 (08:50→13:27)
--- NOTE | 2017-02-18 10:13 | NUR ---
Social Work: Initial Assessment Data: Pt is a 67 y/o female admitted for CVA. Pt's PCP is Dr Wang, pt's insurance is [facility] [place]. EMR reviewed. Readmit score is 4, high. COLLEGE ADMINISTRATOR met with pt at bedside, role explained. Pt states she lives in a 3 story home with her where she uses no DME. Pt states she drives, has no hx of HH or SNF, no LTC or VA benefits, and is not a caregiver. Pt is up in a chair and has been independent in the room, per pt report. Pt states PT saw her this morning and that she walked well and "passed". COLLEGE ADMINISTRATOR awaiting to see PT notes. Likely no d/c planning needs at this time. COLLEGE ADMINISTRATOR will continue to follow for possible d/c planning needs. Assessment: Pt who is independent at baseline. Plan: Pt will d/c home via POV when medically stable. COLLEGE ADMINISTRATOR awaiting to see PT notes for recommendations. Likely no d/c planning needs at this time. COLLEGE ADMINISTRATOR will continue to follow for possible d/c planning needs. FELICITAS Taylor Addendum: 02/18/17 at 1017 by MILDRED HARDY Amended: Links added.
[2017-02-18 10:18] VITALS: PULSE 61
[2017-02-18 12:15] VITALS: BP 146/72; PULSE 60; O2SAT 96
--- NOTE | 2017-02-18 12:42 | NUR ---
Evaluation completed. Please go to "Notes" then click on "Assessments and Notes" (bottom left corner of screen). Then select appropriate discipline tab on top of screen.
--- NOTE | 2017-02-18 14:19 | PCM.DIMED ---
Discharge Instructions Date of Service Feb 18, 2017 Dates of Hospitalization Feb 17, 2017 at 15:33 Discharge Diagnosis Discharge Diagnosis 1. Facial numbness Right, etiology unclear 2 peripheral Neuropath, hands and feett, bilateral 3. Kidney cyst noted on CT, 4. Type 2 diabetes, insulin using. 5. Hypertension. 6. Coronary artery disease. Diet Discharge Diet: Heart Healthy, Diabetic Activity Discharge Activity: Limited until seen by PCP Call your provider Call your provider for: Other (worsening symptoms) Patient Instructions Follow-up plan Follow up with Dr. Wang. Follow-up with PCP in: 1 week Joey Escamilla MD Feb 18, 2017 14:18
--- NOTE | 2017-02-18 14:30 | PCM.DC.MED ---
Discharge Summary Date of Service Feb 18, 2017 Dates of Hospitalization Date of Hospital Admission Feb 17, 2017 at 15:33 Date of Discharge: Feb 18, 2017 Providers: Admitting Physician: Joey Escamlila MD Primary Care Physician: Clive Wang MD Attending Physician: Joey Escamilla MD Diagnosis at Time of Discharge Diagnosis at Time of Discharge 1. Facial numbness, poa, improving, etiology unclear. Active. 2. Peripheral Neuropathy, hand and feet, poa, acute on chronic, improving 3. Kidney cyst noted on CT, September 30, 2016, present on admission, stable. 4. Type 2 diabetes, insulin using, poa, poorly controlled 5. Hypertension, poa, stable. 6. Coronary artery disease. Present on admission. Stable. Procedures XRay, CTs & MRIs PROCEDURE: MRI STROKE PROTOCOL ([id number]) Pre- and post-contrast brain MRI, non-contrast brain MR angiogram, pre- and postcontrast neck MR angiogram BRAIN: CSF spaces: Ventricles are normal in size and shape. Basal cisterns are patent. No extra-axial fluid collections. Brain: Again noted is a small old left pontine lacunar infarct. No intracranial bleeds or mass effects. Mild cerebral volume loss. There are mild chronic microvascular ischemic changes. Finch-white matter interface is normal. Diffusion weighted images show no acute ischemic insults. Brainstem appears normal. Normal intravascular flow voids are present. No abnormal intracranial enhancement. Skull and face: Calvarial marrow signal is normal. Orbits appear normal. Sinuses: Sinuses and mastoids are clear. BRAIN MR ANGIOGRAM: Anterior circulation: Intracranial internal carotid arteries are normal in size and enhancement. The flow within the paired anterior cerebral arteries is normal and symmetric. The flow within the middle cerebral arteries is normal and symmetric. The anterior communicating artery is seen. No stenoses, occlusions, or aneurysms. Posterior circulation: The visualized portions of the vertebral arteries demonstrate normal caliber, and join to form a normal appearing basilar artery. There is a high-grade stenosis in the proximal left posterior cerebral artery. The right posterior cerebral artery demonstrates is normal caliber. No occlusions or aneurysms. NECK MR ANGIOGRAM: Carotids: Great vessels demonstrate a conventional anatomy as they arise from the aortic arch. The origins of the common carotid arteries appear patent. The calibers and courses of both common carotid arteries are normal. The bifurcation regions appear normal bilaterally. The internal carotid arteries demonstrate normal course and caliber. Posterior circulation: The origins of the vertebral arteries appear patent. More superior portions of both vertebral arteries demonstrate normal course and caliber, and join to form a normal appearing basilar artery. Miscellaneous: Subclavian arteries appear patent. Pre-contrast images through the neck show no soft tissue abnormalities. There are small thyroid nodules bilaterally. IMPRESSION: BRAIN MRI: 1. No acute intracranial abnormalities. 2. An old left pontine lacunar infarct. 3. Cerebral volume loss and chronic microvascular ischemic changes. BRAIN MR ANGIOGRAM: 1. No significant stenosis or occlusion in anterior circulations. 2. There is a high-grade stenosis (80%) in the proximal left posterior cerebral artery. NECK MR ANGIOGRAM: 1. No high-grade stenosis or occlusion in carotid arteries bilaterally. 2. No high-grade stenosis or occlusion in vertebral arteries bilaterally. 3. Small thyroid nodules bilaterally. Ultrasound followup suggested. The estimate of stenosis included in the report of the imaging study was calculated using the NASCET method Dictated by: Ronnie North M.D. on 02/17/2017 at 19:36 PROCEDURE: CT ABDOMEN RENAL PROTOCOL FINDINGS: Image quality: Excellent. Lung bases: Lung bases are clear. Heart size is normal. Genitourinary: There are 2 hyperdense nodules in anterior cortex of left kidney , measuring 1.6 cm and 0.7 cm, unchanged in size compared to the last examination. Kidneys are normal in size and symmetrical in enhancement. No renal calculi or hydronephrosis. Other solid organs: Liver and spleen are normal in size and enhancement. Gallbladder is normal. Biliary system is non dilated. Pancreas enhances normally. No adrenal nodules. Peritoneum and bowel: Unenhanced bowel loops are normal in wall thickness and caliber. No free fluid or air. Nodes and vessels: No retroperitoneal or mesenteric adenopathy by size criteria. Aorta and inferior vena cava are normal in caliber. Bones: No suspicious bony lesions. No vertebral body compression fractures. Miscellaneous: There is a tiny fat-containing hernia. IMPRESSION: 1. Two small hyperdense nodules in the anterior cortex of the left kidney, most likely small hyperdense cyst. Both nodules are stable in size compared to last CT. 2. Tiny fat-containing umbilical hernia. Dictated by: Ronnie North M.D. on 02/17/2017 at 20:02 Hospital Course 1. Facial numbness present on admission. improving. -etiology unclear -MRI stroke protocol show no acute event -possible related to diabetes -negative testing include Negativeor normal for; HIV, rh factor, LELA, Thyroid tests, B-12, -Testing still pending at time of discharge include RPR, Lyme arthritis, acute hepatitis screen. (primary care provider to follow up on these tests when patient seen) -if worse or persistent consider neuro consult 2. Worsening diabetic neuropathy, poa, improving -recommend improvement in diabetic control -In phone discussion with Dr Otto today rapidly progressive neuropathy can be a marker for paraneoplastic syndrome therefor I would ask patient's primary care provider to keep this in mind and make sure patient is up to date on all cancer screening etc. -Recently started crestor can exacerbate a neuropathy so I have asked patient to stay off that for a few weeks then restart a Statin 3. Kidney cyst noted on CT, September 30, 2016, present on admission, stable -repeat kidney ct renal protocol show no change in size from September 4. Type 2 diabetes, insulin using, poa, poorly controlled 5. Hypertension, poa, stable -patient's BP's have been good in the hospital, but was high on night of admit at home -follow up with pcp 6. Coronary artery disease. Present on admission. Stable. Exam Vital Signs (Last) Date Time Temp Pulse Resp B/P Pulse Ox O2 Delivery O2 Flow Rate FiO2 02/18/17 12:15 36.5 60 146/72 96 Room Air 02/18/17 08:08 16 Exam Neuro sensory exam much improved from yesterday; -still with numbness feet and hands but now almost equal bilaterally, still more pronounce then usual - facial numbness on right also less, no very slight S!S2 present regular Lungs clear to AP GI soft non acute Test 02/17/17 13:15 02/17/17 15:36 02/17/17 20:25 White Blood Count 8.1th/mm3 (3.8-10.1) Red Blood Count 4.01mil/mm3 (3.90-5.20) Hemoglobin 12.2g/dL (12.0-15.6) Hematocrit 37.8% (35.0-46.0) Mean Corpuscular Volume 94.3fL (81-100) Mean Corpuscular Hemoglobin 30.4pg (27.0-35.0) Mean Corpuscular Hemoglobin Concent 32.3% (32.0-37.0) Red Cell Distribution Width 12.8% (12.3-15.4) Platelet Count 224bil/L (150-400) Neutrophils (%) (Auto) 71.0% (40-74) Lymphocytes (%) (Auto) 19.9% (14-46) Monocytes (%) (Auto) 7.0% (4-12) Eosinophils (%) (Auto) 1.6% (0-5) Basophils (%) (Auto) 0.4% (0-3) Erythrocyte Sedimentation Rate 31mm/hr (0-40) Prothrombin Time 9.6sec (8.1-12.5) Prothromb Time International Ratio 0.90ratio Sodium Level 138mEq/L (134-144) Potassium Level 4.5mEq/L (3.5-5.2) Chloride Level 101mEq/L (97-108) Carbon Dioxide Level 21mmol/L (18-29) Blood Urea Nitrogen 20mg/dL (8-27) Creatinine 0.74mg/dL (0.57-1.00) Estimat Glomerular Filtration Rate 111mL/min (>59) Glucose Level 231mg/dL (60-99) Hemoglobin A1c 7.9% (4.8-5.6) Calcium Level 9.5mg/dL (8.5-10.1) Magnesium Level 1.6mg/dL (1.6-2.6) Total Bilirubin 0.3mg/dL (0.0-1.2) Aspartate Amino Transf (AST/SGOT) 20U/L (0-50) Alanine Aminotransferase (ALT/SGPT) 17U/L (0-32) Alkaline Phosphatase 102U/L (25-165) Total Creatine Kinase 69U/L (21-215) Troponin T < 0.010ug/L (0.0-0.011) Total Protein 7.3g/dL (6.4-8.4) Albumin 4.0g/dL (3.4-5.0) Triglycerides Level 332mg/dL (0-149) Cholesterol Level 165mg/dL (100-199) LDL Cholesterol, Calculated 50.600mg/dL (0-99) VLDL Cholesterol 66.400mg/dL HDL Cholesterol 48mg/dL (>39) Cholesterol/HDL Ratio 3.44 (0.0-4.4) Procalcitonin 0.05ng/mL (0.00-0.08) Thyroid Stimulating Hormone (TSH) 1.590uIU/mL (0.450-4.500) Free Thyroxine 1.22ng/dL (0.82-1.77) Hold Reynolds Top Tube Received (Received) Anti-Nuclear Antibody Screen Negative (Negative) Urine Color Red (YELLOW) Urine Appearance Cloudy (CLEAR,HAZY) Urine pH 6.0 (5.0-8.0) Urine Specific [place] 1.010 (1.003-1.035) Urine Protein Negativemg/dL (NEG,TRACE) Urine Glucose (UA) Negativemg/dL (NEGATIVE) Urine Ketones Negativemg/dL (NEGATIVE) Urine Occult Blood Negative (NEGATIVE) Urine Nitrite Negative (NEGATIVE) Urine Bilirubin Negative (NEGATIVE) Urine Urobilinogen Normalmg/dL (NORMAL) Urine Leukocyte Esterase Negative (NEGATIVE) Urine RBC 0-2/hpf (0-2) Urine WBC 0-5/hpf (0-5) Urine Epithelial Cells Few/hpf (NONE-MOD) Urine Crystals None seen (NONE SEEN) Urine Bacteria Few/hpf (NONE-FEW) Urine Hyaline Casts None/lpf (NONE) Urine Granular Casts None seen (NONE SEEN) Urine Waxy Casts None seen (NONE SEEN) Urine Red Blood Cell Casts None seen (NONE SEEN) Urine White Blood Cell Casts None seen (NONE SEEN) Urine Mucus None seen (None Seen) Urine Trichomonas None seen (NONE SEEN) Urine Yeast None (NONE SEEN) Urinalysis Comment None Urine Culture Reflexed Not indicated Vitamin B12 Level 711pg/mL (211-946) Rheumatoid Factor <10.0IU/mL (0.0-13.9) Hepatitis A IgM Antibody Negative (Negative) Hepatitis B Surface Antigen Negative (Negative) Hepatitis B Core IgM Antibody Negative (Negative) Hepatitis C Antibody <0.1s/co ratio (0.0-0.9) Hepatitis C Comment Comment (.) HIV (1&2) Ag and Ab, 4th Generation Non reactive (Non Reactive) Discharge Medications Discharge Medications ([Lactobacillus Acidophilus]) 1 TABLET TABLET 2 TABLET PO PCHS Prescribed by: SONIA CHEN MD Ammonium Lactate (Ammonium Lactate) 140 Gm Cream..g. 140 GM TP DAILY (Reported) Ascorbate Calcium (Vitamin C) 500 Mg Tablet 1,000 MG PO DAILY (Reported) Aspirin (Aspirin) 81 Mg Tablet 81 MG PO DAILY (Reported) Calcium Carbonate/Vitamin D3 (Calcium 1,000 + D3 Caplet) 1 Each Tablet 1 EACH PO DAILY (Reported) Cholecalciferol (Vitamin D3) (Vitamin D3) 2,000 Unit Capsule 2,000 UNIT PO DAILY (Reported) Cranberry Extract (Cranberry) 200 Mg Capsule 200 MG PO DAILY (Reported) Hydrochlorothiazide (Hydrochlorothiazide) 25 Mg Tablet 12.5 MG PO DAILY ( Reported) Insulin Human Isophan/Regular (HUMulin 70/30 U100 Insulin Vial) 100 Unit/Ml Ml 35 UNIT SUBQ BID (Reported) Isosorbide MN ER (Isosorbide MN ER) 30 Mg Tab.er.24h 30 MG PO DAILY (Reported) Lisinopril (Lisinopril) 20 Mg Tablet 20 MG PO DAILY (Reported) Magnesium Oxide (Mag-Oxide) 400 Mg Tablet 400 MG PO BID Prescribed by: SONIA CHEN MD Metformin (Glucophage) 500 Mg Tablet 1,000 MG PO BID (Reported) Metoprolol Tartrate (Metoprolol Tartrate) 50 Mg Tablet 50 MG PO BID (Reported) Multivitamin (Once Daily) 1 Each Tablet 1 EACH PO DAILY (Reported) Omeprazole (Omeprazole) 20 Mg Capsule.dr 20 MG PO DAILY (Reported) Oxyquinoline/Sod.lauryl Sulfat (Trimo-Pereira Jelly) 113.4 Gm Jelly.appl 1 GM VG twice a week (Reported) Ubidecarenone (Co Q-10) 300 Mg Capsule 300 MG PO DAILY (Reported) As needed Nitroglycerin SL (Nitrostat) 0.4 Mg Tab.subl 0.4 MG SL Q5MIN PRN PRN For Chest Pain (Reported) Followup Plan Follow-up plan Follow up with Dr. Wang. Discharge Diet: Heart Healthy, Diabetic Discharge Activity: Limited until seen by PCP Follow-up with PCP in: 1 week Time spent 35 minutes spent discharging patient home today so far copies to: Clive Wang MD, D Geoffrey MD Feb 18, 2017 14:30
--- NOTE | 2017-02-18 15:17 | NUR ---
Social Work: Discharge Data: Pt is on day 1 of hospitalization. EMR reviewed. D/C orders are in for home. No d/c planning needs at this time. [employer] will continue to follow if needs arise. Assessment: Pt who is independent at baseline. Plan: Pt will d/c home via POV today with family. No d/c planning needs at this time. [employer] will continue to follow if needs arise. FELICITAS Taylor
--- NOTE | 2017-02-18 17:40 | NUR ---
Discharge Pt discharged from unit, accompanied by her . Pt feels comfortable going home. Pt knows that she needs to follow up with her PCP. Pt provided with information on diagnoses and signs to watch for. Pt educated on s/sx of stroke and how they differ from her current symptoms. Pt taken off floor in a wheelchair.
== END 2017-02-18 17:40 | disposition home or self-care (01) ==
LOC: SED 11:56 → MOC 15:33
PROVIDERS: ADMIT Hospitalist; ATTEND Hospitalist
DX: R20.0 Anesthesia of skin (principal); I63.9 Cerebral infarction, unspecified; E11.42 Type 2 diabetes mellitus with diabetic polyneuropathy; G62.9 Polyneuropathy, unspecified; N28.1 Cyst of kidney, acquired; I10 Essential (primary) hypertension; I25.10 Atherosclerotic heart disease of native coronary artery without angina pectoris; K58.9 Irritable bowel syndrome, unspecified; K31.84 Gastroparesis; K21.9 Gastro-esophageal reflux disease without esophagitis; Z85.3 Personal history of malignant neoplasm of breast; Z92.3 Personal history of irradiation; Z79.84 Long term (current) use of oral hypoglycemic drugs; Z79.4 Long term (current) use of insulin; Z79.82 Long term (current) use of aspirin
CPT/HCPCS: 36415; 70450; 70549; 70553; 74170; 80053; 80061; 81000; 82550; 82607; 83036; 83735; 84145; 84439; 84443; 84484; 85025; 85610; 85651; 86038; 86430; 86592; 86618; 86705; 86709; 87340; 87341; 93005; 97161; 99285; A9585; G0378; G0433; G0472; J1815; Q9967